=== PATIENT | female | born 1950 | race Caucasian/White ===

== ENCOUNTER 2023-05-04 09:01 | Emergency (ER) | payer OTHER, SELFPAY ==
[2023-05-04 09:18] VITALS: BP 149/98
--- NOTE | 2023-05-04 09:55 | ED.GENMED ---
History of Present Illness
General
Chief Complaint: Abdominal Symptoms
Source: patient
Time Seen by Provider: 05/04/23 09:43
Travel History
Have you had any contact with someone who has COVID-19?: No
Do you have any symptoms of coronavirus? Fever > 100 degrees, chills, cough, shortness of breath, sore throat, loss of taste or smell, muscle aches, or headache?: No
History of Present Illness
History of Present Illness:
72-year-old female presents to the emergency room complaining of having diarrhea and significant bloating and gas over the past 3 to 4 months. She has about 2 loose stools a day. She is able to tolerate oral intake. She has not had any weight
loss and in fact believes she has gained a bit of weight over the past 3 or 4 months. She denies abdominal pain. Patient last took antibiotics in October after spine surgery. She denies any travel. She denies any sick contacts. Her home is
applied by [employer].
Past History
Past History
ED Past Medical History: GERD (Barrretts), Hypothyroidism and Other (Silva's esophagus)
ED Past Surgical History: Cholecystectomy (11/02) and Orthopedic
Social History
Tobacco: Non-smoker
Alcohol: None
Drug: None
Personal: Single
Living: alone
Phy Exam
Physical Exam
Physical Exam:
General: Awake, Alert, Oriented X3. No acute distress.
Vitals: unremarkable
Head: Atraumatic
Eyes: Pupils equal, EOMI
Throat: Airway intact, no exudates
Neck: Trachea midline
Lungs: Clear and equal b/l
Heart: Regular rate, no murmurs
Abd: Soft, Nontender, No pulsatile mass
Neuro: Nonfocal
Skin: Warm, dry, no rash
Extremities: pulses equal b/l, no edema
Course
Orders/Labs/Results
Orders:
Orders
05/04/23 09:52
0.9% Sodium Chloride 500 ml [Nss] 500 ml IV BOLUS
05/04/23 10:06
Complete Blood Count/With Diff Urgent
05/04/23 10:31
Comprehensive Metabolic Panel Urgent
Abnormal Lab Results
05/04/23
10:31
Chloride 110 H mmol/L
(98-107)
Glucose 115 H mg/dl
(70-99)
Total Protein 5.6 L g/dl
(6.3-8.2)
Albumin 3.4 L g/dl
(3.5-5.0)
05/04/23 10:06
05/04/23 10:31
Vital Signs
Initial and Last Documented VS:
Initial Vital Signs
Temp Pulse Resp BP Pulse Ox
98.1 F 102 16 149/98 95
05/04/23 09:18 05/04/23 09:18 05/04/23 09:18 05/04/23 09:18 05/04/23 09:18
Last Documented Vital Signs
Temp Pulse Resp BP Pulse Ox
98.1 F 85 16 136/86 98
05/04/23 09:18 05/04/23 10:19 05/04/23 10:19 05/04/23 12:03 05/04/23 11:35
MDM/Problems Addressed
Differential Diagnosis Includes:
Malabsorption, viral illness, medication side effect, dietary effect
MDM/Problems Addressed:
Patient states that she has been having 2 loose stools every day for the past several weeks. She had spinal surgery preceding the diarrhea. She did develop diarrhea at that time and did develop a couple weeks later. She was on antibiotics for her
surgery but none since. Doubt C. difficile given the infrequency of her stool. Also she did not develop diarrhea immediately following the use of the antibiotics. However patient does recall a significant change in her dietary habits since the
surgery. She is relying more on prepared foods and fast foods. Suggest the patient change her diet to less prepared foods and fast foods. Recommended brat diet for the next 2 or 3 days to see if that helps. Follow-up with GI as an outpatient.
*Critical Care Note
Total Time (30-74mins, 75-104mins- exclusive of procedures): Not Applicable
ED Attending Note
-
Portions of this chart may have been created with voice recognition software.� Occasional wrong word or��sound alike� substitutions may have occurred due to the inherent limitations of voice recognition software.
Discharge Plan
Departure
Patient Disposition: Home (Routine Discharge)
Date of Disposition: 05/04/23
Time of Disposition: 12:28
Patient with high blood pressure during this ER visit?: Yes
Condition: Good
Discharge Problem:
Diarrhea
Instructions: Low Fiber Diet, Diarrhea, Adult ED
Prescriptions:
No Action
levothyroxine [Levoxyl] 75 MCG tablet
75 mcg PO DAILY
rosuvastatin 5 mg Tablet
5 mg PO DAILY
aripiprazole 2 mg Tablet
2 mg PO DAILY
Rx Instructions:
Cuts tab in 03/17.
vilazodone 10 mg Tablet
10 mg PO DAILY
Rx Instructions:
takes with food.
omeprazole magnesium [Prilosec OTC] 20 mg Tablet,Delayed Release (Dr/Ec)
20 mg PO DAILY
acetaminophen 325 mg tablet
650 mg PO Q4H PRN (Reason: mild pain) Qty: 60 0RF
Rx Instructions:
DO NOT exceed >4000 mg daily while on Tylenol with Codeine.
1 Tylenol with Codeine = 300 mg of Tylenol.
meloxicam 15 mg Tablet
15 mg PO DAILY
alprazolam 0.5 mg Tablet
0.5 mg PO PRN PRN (Reason: .as directed)
Referrals:
Crescencio Epstein MD [Family Provider] -
Interventions
Interventions:
*Risk Screen - Suicide Last Done: 05/04/23 09:18
*General Assessment Last Done: 05/04/23 09:18
*Neglect/Abuse Screening Last Done: 05/04/23 09:18
ED- Fall Risk Assessment Last Done: 05/04/23 10:07
*ED COVID-19 Vaccine History Last Done: 05/04/23 09:40
*Nursing Disposition Last Done: 05/04/23 12:44
MM-Ulsubk-Dxlgibwqjc Assessment Last Done: 05/04/23 10:16
Discharge Date and Time
Discharge Date/Time: 05/04/23 12:53
[2023-05-04] MEDS: NSS 500 IV (10:05)
[2023-05-04 10:07] VITALS: BMI 30.7
[2023-05-04 10:19] VITALS: BP 135/81
[2023-05-04 10:20] LABS: % Eosinophils 2.5 % (0-6); % Immature Granulocytes 0.2 % (0-0.5); % Lymphocytes 32.8 % (20.5-51.1); % Monocytes 9.2 % (1.7-9.3); % Neutrophils 54.3 % (42.2-75.2); Absolute Basophils 0.1 10^3/uL (0-0.2); Absolute Eosinophils 0.2 10^3/uL (0-0.7); Absolute Lymphocytes 2.1 10^3/uL (1.2-3.4); Absolute Monocytes 0.6 10^3/uL (0.1-0.6); Absolute Neutrophils 3.4 10^3/uL (1.4-6.5); Hematocrit 43.3 % (37.0-47.0); Mean Corp Hgb Conc. 34.6 g/dL (33.0-37.0); Mean Corpuscular Volume 89.5 fL (81.0-99.0); Mean Platelet Volume 9.4 fL (7.4-10.4); Nucleated Red Blood Cells % 0 %; Platelet Count 304 10^3/uL (130-400); Red Blood Cell Count 4.84 10^6/uL (4.20-5.40); Red Cell Dist. Width 13.1 % (11.5-14.5); White Blood Cell Count 6.3 10^3/uL (4.8-10.8)
[2023-05-04 10:51] LABS: ALT (SGPT) 23 U/L (0-35); AST (SGOT) 23 U/L (14-36); Albumin 3.4 g/dl (3.5-5.0); Alkaline Phosphatase 87 U/L (38-126); Blood Urea Nitrogen 13 mg/dl (7-17); Calcium 8.8 mg/dl (8.4-10.2); Carbon Dioxide 24 mmol/L (22-30); Chloride 110 mmol/L (98-107); Estimated Creatinine Clearance 83 ml/min; Glucose 115 mg/dl (70-99); Potassium 3.7 mmol/L (3.5-5.1); Sodium 139 mmol/L (135-145); Total Bilirubin 0.5 mg/dl (0.2-1.3); Total Protein 5.6 g/dl (6.3-8.2); eGFR > 60.00
[2023-05-04 11:08] VITALS: BP 162/100
[2023-05-04 12:03] VITALS: BP 136/86
== END 2023-05-04 12:53 | disposition home or self-care (01) ==
LOC: EMR 09:01
PROVIDERS: EMERGENCY PHYSICIAN Emergency Medicine; FAMILY PHYSICIAN Family Medicine
DX: R19.7 Diarrhea, unspecified (principal); R14.0 Abdominal distension (gaseous); R03.0 Elevated blood-pressure reading, without diagnosis of hypertension
CPT/HCPCS: 99284; 96360; 80053; 85025

== ENCOUNTER → 2023-05-27 14:50 | Outpatient (REF) | payer OTHER, SELFPAY | LOC: WDC 14:50 | PROVIDERS: ATTENDING PHYSICIAN Family Medicine | DX: Z12.31 Encounter for screening mammogram for malignant neoplasm of breast (principal); M85.80 Other specified disorders of bone density and structure, unspecified site | CPT/HCPCS: 77063; 77067; 77080 ==

== ENCOUNTER 2023-07-10 14:11 | Outpatient (RCR) | payer OTHER, SELFPAY ==
[2023-07-10 14:34] VITALS: BP 122/78
[2023-07-10] MEDS: RECLAST 100 IV (14:36)
== END 2023-07-13 08:12 | disposition home or self-care (01) ==
LOC: OID 14:11
PROVIDERS: ATTENDING PHYSICIAN Family Medicine
DX: M81.0 Age-related osteoporosis without current pathological fracture (principal)
CPT/HCPCS: 96365; J3489

== ENCOUNTER 2023-07-11 15:16 | Emergency (ER) | payer OTHER, SELFPAY ==
[2023-07-11 15:20] VITALS: BP 120/84
[2023-07-11 15:46] LABS: % Basophils 0.2 % (0-2); % Immature Granulocytes 0.5 % (0-0.5); % Lymphocytes 3.5 % (20.5-51.1); % Neutrophils 93.8 % (42.2-75.2); Absolute Immature Granulocytes 0.1 10^3/uL (0-0.05); Absolute Lymphocytes 0.5 10^3/uL (1.2-3.4); Absolute Monocytes 0.3 10^3/uL (0.1-0.6); Absolute Neutrophils 11.9 10^3/uL (1.4-6.5); Hemoglobin 15.7 g/dL (12.0-16.0); Mean Corp Hgb Conc. 34.9 g/dL (33.0-37.0); Mean Corpuscular Hgb 30.6 pg (27.0-31.0); Mean Corpuscular Volume 87.7 fL (81.0-99.0); Mean Platelet Volume 9.1 fL (7.4-10.4); Nucleated Red Blood Cells % 0 %; Platelet Count 286 10^3/uL (130-400); Red Blood Cell Count 5.13 10^6/uL (4.20-5.40); White Blood Cell Count 12.7 10^3/uL (4.8-10.8)
[2023-07-11 15:58] LABS: ALT (SGPT) 28 U/L (0-35); AST (SGOT) 25 U/L (14-36); Albumin 4.4 g/dl (3.5-5.0); Alkaline Phosphatase 115 U/L (38-126); Blood Urea Nitrogen 17 mg/dl (7-17); Calcium 9.4 mg/dl (8.4-10.2); Carbon Dioxide 22 mmol/L (22-30); Chloride 103 mmol/L (98-107); Glucose 150 mg/dl (70-99); Potassium 3.9 mmol/L (3.5-5.1); Sodium 133 mmol/L (135-145); Total Bilirubin 1.2 mg/dl (0.2-1.3); eGFR > 60.00
[2023-07-11 18:28] VITALS: BP 149/82; BMI 29.2
[2023-07-11 18:30] VITALS: BP 149/82
[2023-07-11] MEDS: ZOFRAN 4 MG IV (18:38)
[2023-07-11] MEDS: NSS 500 IV (18:39)
[2023-07-11] MEDS: TORADOL 15 MG IV (18:39)
[2023-07-11 19:00] VITALS: BP 164/104
[2023-07-11 19:32] LABS: Urine Albumin Negative (Neg - Trace); Urine Bilirubin Negative (Negative); Urine Character Slightly Cloudy (Clear); Urine Color Yellow; Urine Glucose Negative (Negative); Urine Ketone Negative (Negative); Urine Leukocyte 1+ (Negative); Urine Nitrite Negative (Negative); Urine Occult Blood Negative (Negative); Urine Urobilinogen Negative (Neg - 1+)
[2023-07-11 19:51] LABS: Urine Squamous Cell >30 /LPF (Few)
[2023-07-11 19:52] LABS: Urine Bacteria Few (Negative); Urine Red Blood Cell 0-2 /HPF (0-2); Urine White Cell 16-20 /HPF (0-5)
--- NOTE | 2023-07-11 20:00 | ED.GENMED ---
History of Present Illness
General
Chief Complaint: Abdominal Symptoms
Source: patient
Exam Limitations: none
Time Seen by Provider: 07/11/23 17:40
Nursing documentation reviewed up to this point in time: agreed with
Travel History
Have you had any contact with someone who has COVID-19?: No
Do you have any symptoms of coronavirus? Fever > 100 degrees, chills, cough, shortness of breath, sore throat, loss of taste or smell, muscle aches, or headache?: No
History of Present Illness
History of Present Illness:
72-year-old female with past medical history of hyperlipidemia presenting to the emergency department today with concerns of nausea vomiting generalized weakness headache over the past few days since taking her IV osteoporosis medication yesterday.
Denies chest pain shortness of breath
Past History
Past History
ED Past Medical History: GERD (Barrretts), Hypothyroidism and Other (Silva's esophagus)
ED Past Surgical History: Cholecystectomy (11/02) and Orthopedic
Social History
Tobacco: Non-smoker
Alcohol: None
Drug: None
Personal: Single
Living: alone
Review of Systems
Review of Systems
Allergies reviewed?: Yes
All Other Systems: ROS reviewed and negative except as documented in HPI and ROS
Phy Exam
Physical Exam
Physical Exam:
GENERAL: Alert , in no apparent distress
EYE: pupils equal and reactive
NECK: Supple, no significant adenopathy.
ENT: o/p clr, mmm.
CARDIAC: Regular rate and rhythm .
LUNGS: Clear breath sounds bilaterally, no acute respiratory distress, no wheezes/rales/rhonchi
ABDOMEN: Soft, without focal tenderness, no r/g, no cvat
NEUROLOGICAL: Alert and oriented, no focal neuro deficits
SKIN: Warm and dry, skin intact.
MUSCULOSKELETAL: No edema, well perfused.
PSYCH: Normal and appropriate interaction.
Course
Orders/Labs/Results
Orders:
Orders
07/11/23 15:35
CBC/With Diff [Complete Blood Count/With Diff] Urgent
CMP [Comprehensive Metabolic Panel] Urgent
TSH Urgent
Comment: ADD ON
07/11/23 17:49
EKG [Electrocardiogram (*1)] Urgent
Reason for Study: Abdominal Pain
EKG- Treatment ONCE
Ketorolac [Toradol] 15 mg IV NOW STA
Ondansetron Injectable [Zofran] 4 mg IV NOW STA
07/11/23 17:50
Add On- LAB Urgent
Tests Added?: TSH
0.9% Sodium Chloride 500 ml [Nss] 500 ml IV BOLUS
07/11/23 19:26
Urinalysis Reflex To Culture Urgent
Date Specimen was Collected: 07/11/23
Time Specimen was Collected: 19:25
Urine Microscopic Reflex Cult Urgent
Urine Culture Urgent
SIERRA Source: U
Specimen Description:
Date Specimen was Collected: 07/11/23
Time Specimen was Collected: 19:25
Abnormal Lab Results
07/11/23 07/11/23
15:35 19:26
WBC 12.7 H 10^3/uL
(4.8-10.8)
Abs Immat Gran (auto) 0.1 H 10^3/uL
(0-0.05)
Absolute Neuts (auto) 11.9 H 10^3/uL
(1.4-6.5)
Absolute Lymphs (auto) 0.5 L 10^3/uL
(1.2-3.4)
Neutrophils % 93.8 H %
(42.2-75.2)
Lymphocytes % 3.5 L %
(20.5-51.1)
Sodium 133 L mmol/L
(135-145)
Glucose 150 H mg/dl
(70-99)
Leukocyte Esterase Rfl 1+ A
(Negative)
Urine WBC (Reflex) 16-20 A /HPF
(0-5)
Urine Bacteria (Reflex) Few A
(Negative)
07/11/23 15:35
07/11/23 15:35
Vital Signs
Initial and Last Documented VS:
Initial Vital Signs
Temp Pulse Resp BP Pulse Ox
99.1 F 104 16 120/84 98
07/11/23 15:20 07/11/23 15:20 07/11/23 15:20 07/11/23 15:20 07/11/23 15:20
Last Documented Vital Signs
Temp Pulse Resp BP Pulse Ox
98.5 F 84 18 149/82 97
07/11/23 18:28 07/11/23 18:45 07/11/23 18:45 07/11/23 18:30 07/11/23 18:45
MDM/Problems Addressed
MDM/Problems Addressed:
9-year-old female presenting to the emergency department with concerns of nausea vomiting generalized weakness fatigue headache over the past 24 hours since taking IV medication for osteoporosis. These are some of the known side effects. Otherwise
her pulse rate was slightly elevated upon arrival but improved without specific treatment. White count 12.7 otherwise labs unremarkable urinalysis not consistent with UTI consider negative squamous epithelial cells. EKG normal. Patient generally
well-appearing no acute distress throughout ER stay able to ambulate well here. Patient appear stable for outpatient management return precautions given.
*Critical Care Note
Total Time (30-74mins, 75-104mins- exclusive of procedures): Not Applicable
ED Attending Note
-
Portions of this chart may have been created with voice recognition software.� Occasional wrong word or��sound alike� substitutions may have occurred due to the inherent limitations of voice recognition software.
Discharge Plan
Departure
Patient Disposition: Home (Routine Discharge)
Date of Disposition: 07/11/23
Time of Disposition: 20:01
Patient with high blood pressure during this ER visit?: No
Condition: Good
Covid-19: Not Applicable
Discharge Problem:
Generalized weakness, Nausea
Instructions: Generalized Weakness (DC)
Prescriptions:
No Action
levothyroxine [Levoxyl] 75 MCG tablet
75 mcg PO DAILY
rosuvastatin 5 mg Tablet
5 mg PO DAILY
aripiprazole 2 mg Tablet
2 mg PO DAILY
Rx Instructions:
Cuts tab in 03/17.
vilazodone 10 mg Tablet
10 mg PO DAILY
Rx Instructions:
takes with food.
omeprazole magnesium [Prilosec OTC] 20 mg Tablet,Delayed Release (Dr/Ec)
20 mg PO DAILY
acetaminophen 325 mg tablet
650 mg PO Q4H PRN (Reason: mild pain) Qty: 60 0RF
Rx Instructions:
DO NOT exceed >4000 mg daily while on Tylenol with Codeine.
1 Tylenol with Codeine = 300 mg of Tylenol.
meloxicam 15 mg Tablet
15 mg PO DAILY
alprazolam 0.5 mg Tablet
0.5 mg PO PRN PRN (Reason: .as directed)
Referrals:
Sravani Sherman DO [Family Provider] -
Activity Restrictions/Additional Instructions:
You can to the emergency department today with potential side effects to medication. Here you had a reassuring evaluation. Return for any worsening, new or concerning symptoms.
Interventions
Interventions:
*Risk Screen - Suicide Last Done: 07/11/23 15:20
*General Assessment Last Done: 07/11/23 15:20
*Neglect/Abuse Screening Last Done: 07/11/23 15:20
ED- Fall Risk Assessment Last Done: 07/11/23 18:28
*ED COVID-19 Vaccine History Last Done: 07/11/23 18:28
LT-Ndeole-Unxrahritm Assessment Last Done: 07/11/23 18:28
Discharge Date and Time
Print Language: YAKUT
[2023-07-11 20:03] LABS: TSH 1.84 uIU/ml (0.47-4.68)
== END 2023-07-11 20:22 | disposition home or self-care (01) ==
LOC: EMR 15:16
PROVIDERS: Physician Assistant; EMERGENCY PHYSICIAN Emergency Medicine; FAMILY PHYSICIAN Otolaryngology
DX: R53.1 Weakness (principal); R11.0 Nausea; E78.5 Hyperlipidemia, unspecified
CPT/HCPCS: 99284; 96374; 96375; 96361; 80053; 81003; 81015; 84443; 85025; 87086; 93005

== ENCOUNTER → 2023-08-21 13:39 | Outpatient (REF) | payer OTHER, SELFPAY | LOC: RAD 13:39 | PROVIDERS: ATTENDING PHYSICIAN Nurse Practitioner Family | DX: J22 Unspecified acute lower respiratory infection (principal) | CPT/HCPCS: 71046 ==

== ENCOUNTER → 2024-03-07 14:04 | Outpatient (REF) | payer OTHER, SELFPAY | LOC: PAVMRI 14:04 | PROVIDERS: ATTENDING PHYSICIAN Physician Assistant; FAMILY PHYSICIAN Family Medicine | DX: R26.9 Unspecified abnormalities of gait and mobility (principal); R25.1 Tremor, unspecified; R42 Dizziness and giddiness | CPT/HCPCS: 70553; A9575 ==

== ENCOUNTER → 2024-03-22 07:34 | Outpatient (REF) | payer OTHER, SELFPAY | LOC: RAD 07:34 | PROVIDERS: ATTENDING PHYSICIAN Internal Medicine Gastroenterology; FAMILY PHYSICIAN Family Medicine | DX: K44.9 Diaphragmatic hernia without obstruction or gangrene (principal); K21.9 Gastro-esophageal reflux disease without esophagitis | CPT/HCPCS: 78264; A9541 ==

== ENCOUNTER → 2024-05-08 09:24 | Outpatient (REF) | payer OTHER, SELFPAY | LOC: PAVMRI 09:24 | PROVIDERS: ATTENDING PHYSICIAN Anesthesiology Pain Medicine; FAMILY PHYSICIAN Family Medicine | DX: M96.1 Postlaminectomy syndrome, not elsewhere classified (principal); M54.14 Radiculopathy, thoracic region | CPT/HCPCS: 72146; 72148 ==

== ENCOUNTER 2024-09-14 00:35 | Inpatient (IN) | payer OTHER, SELFPAY ==
[2024-09-13 20:52] VITALS: BP 135/101
[2024-09-13 20:53] VITALS: BMI 29.1
[2024-09-13 21:00] VITALS: BP 138/120
[2024-09-13 21:07] LABS: Hematocrit 41.9 % (37.0-47.0); Hemoglobin 14.3 g/dL (12.0-16.0); Mean Corp Hgb Conc. 34.1 g/dL (33.0-37.0); Mean Corpuscular Volume 89.0 fL (81.0-99.0); Nucleated Red Blood Cells % 0 %; Platelet Count 238 10^3/uL (130-400); Red Cell Dist. Width 13.2 % (11.5-14.5)
[2024-09-13 21:23] LABS: ALT (SGPT) 28 U/L (0-35); AST (SGOT) 22 U/L (14-36); Albumin 4.0 g/dl (3.5-5.0); Alkaline Phosphatase 68 U/L (38-126); Blood Urea Nitrogen 10 mg/dl (7-17); Calcium 9.0 mg/dl (8.4-10.2); Carbon Dioxide 22 mmol/L (22-30); Chloride 107 mmol/L (98-107); Estimated Creatinine Clearance 70 ml/min; Glucose 176 mg/dl (70-99); Potassium 4.2 mmol/L (3.5-5.1); Sodium 135 mmol/L (135-145); Total Protein 6.7 g/dl (6.3-8.2); eGFR > 60.00
[2024-09-13 22:34] LABS: INR 0.99; PT 13.4 Sec (11.4-14.6)
[2024-09-13 22:35] LABS: APTT 26.6 Sec (23.4-35.0)
--- NOTE | 2024-09-13 22:38 | ED.GENMED ---
History of Present Illness
General
Chief Complaint: Fever
Source: patient and other (Friend)
Exam Limitations: none
Time Seen by Provider: 09/13/24 21:53
History of Present Illness
History of Present Illness:
Note:
CHIEF COMPLAINT(S)
Infection, swelling near the left angle of the mandible, and generalized weakness.
HISTORY OF PRESENT ILLNESS
The patient is a 73-year-old female who presents with infection and swelling near the left angle of her mandible. She initially experienced a sinus infection in July after a back surgery on August 09, where a stimulator was implanted to manage
sciatica-like symptoms. 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 Recently, she was started on Augmentin and had taken only one dose before feeling extremely weak,
prompting a call to a nurse friend who found her leaning against the sink at home. The patient also reported a fever, recorded at 100.2�F earlier in the day, and described weakness, difficulty unhinging her jaw due to swelling, and a history of a
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 The patient denies chest pain, shortness of breath, new muscle aches, leg swelling, dental pain, and currently denies nausea.
CHRONIC MEDICAL CONDITIONS SIGNIFICANTLY AFFECTING CARE
The patient has a history of essential tremor, anxiety, depression, hyperlipidemia, hyperthyroidism (not using any prescribed thyroid medication), and foot drop.
SOCIAL DETERMINANTS AFFECTING HEALTH
The patient lives alone in a private home.
MEDICATIONS
The patient is on atorvastatin as previously mentioned but details regarding dosage and specific use were not provided. The patient was recently prescribed Augmentin.
PHYSICAL EXAM
- Swelling noted near the left angle of the mandible.
- No chest pain or shortness of breath reported.
- No edema observed.
- Nursing notes reviewed and vital signs reviewed.
PROBLEM LIST
Acute:
- Infection in the parotid region with swelling and fever.
- Generalized weakness possibly related to the infection.
Chronic:
- Essential tremor
- Anxiety
- Depression
- Hyperlipidemia
- Ongoing issues with foot drop
PLAN
1. Admit the patient for further evaluation and observation due to weakness.
2. Perform additional laboratory tests and imaging, including a computed tomography scan of the face and neck to assess the parotid region.
3. Administer fluids to the patient.
4. Monitor the patients symptoms and provide medications for pain and nausea if needed.
DIFFERENTIAL DIAGNOSIS
The Differential Diagnosis includes, in no particular order and is not limited to:
1. Parotitis
2. Salivary gland tumor recurrence
3. Infection secondary to dental issues
4. Submandibular abscess
5. Sialolithiasis
6. Cellulitis
7. Lymphadenopathy
8. Sinusitis relapse
9. Facial cellulitis
10. Complication from recent back surgery or medication side effects
CARE-UPDATE
09/13/24 - 23:40
CT scan reveals left parotitis with asymmetric enlargement and inflammation of the left parotid gland. Probable left intraparotid lymph nodes indicated; follow-up imaging recommended post-treatment for reevaluation. Noted bilateral cervical
lymphadenopathy.
Disposition:
SUMMARY OF ENCOUNTER
The patient, a 73-year-old female, presented with acute parotitis that failed outpatient therapy on two occasions. Initially, the patient was treated with Augmentin, which was stopped after one dose due to extreme weakness. Despite this, her
symptoms persisted, necessitating a more intensive approach.
DISPOSITION
The patient will be admitted to the hospital service for further management.
PLAN
The initiation of Unasyn (ampicillin/sulbactam) and Flagyl (metronidazole) for the acute parotitis was planned.
MEDICATION RECONCILIATION
Patient was started on Unasyn (ampicillin/sulbactam) and Flagyl (metronidazole).
MEDICAL DECISION MAKING
-Complexity of Data Reviewed: Chronic conditions affecting care: Essential tremor, anxiety, depression, hyperlipidemia, hyperthyroidism, foot drop.
DDx includes: Parotitis, Salivary gland tumor recurrence, Infection secondary to dental issues, Submandibular abscess, Sialolithiasis, Cellulitis, Lymphadenopathy, Sinusitis relapse, Facial cellulitis, Complication from recent back surgery or
medication side effects.
-Risk: The risk of complications and/or morbidity due to acute infection prompted the decision to admit the patient for inpatient care and to initiate antibiotic therapy beyond outpatient management options.
DIAGNOSIS
Acute Parotitis - ICD-10: K11.2
Past History
Past History
ED Past Medical History: GERD (Barrretts), Hypothyroidism and Other (Silva's esophagus)
ED Past Surgical History: Cholecystectomy (11/02) and Orthopedic
Social History
Tobacco: Non-smoker
Alcohol: None
Drug: None
Personal: Single
Living: alone
Review of Systems
Review of Systems
Allergies reviewed?: Yes
Other source history: family
All Other Systems: ROS reviewed and negative except as documented in HPI and ROS
Constitutional: Reports fever and fatigue
Phy Exam
General Physical Exam
General Presentation: well appearing, moderate distress and mild distress
General age: appears stated age
General Skin: warm and dry
General Habitus: elderly
General Mental: alert
ENT Exam
ENT Exam: EOMI, pharynx normal, neck supple, lymphnodes and swallowing well
Eye Exam
Eye Exam: PERRL and EOMI
Cardiovascular Exam
Cardiovascular Exam: regular rate/rhythm and no edema
Pulmonary Exam
Pulmonary Exam: lungs clear and no respiratory distress
Neurological Exam
Neurological Exam: alert and oriented x3
Skin Exam
Skin Exam: normal color and warm/dry
Psychiatric Exam
Psychiatric Exam: normal mood/affect
Course
Orders/Labs/Results
Orders:
Orders
09/13/24 20:53
Electrocardiogram (*1) Urgent
Reason for Study: Fatigue / Weakness
EKG- Treatment ONCE
09/13/24 20:58
Complete Blood Count/With Diff Urgent
Comprehensive Metabolic Panel Urgent
Lactic Acid Urgent
09/13/24 22:08
CT Neck With Iv Contrast Urgent
Comment:
Reason For Exam: left sided mass, fever, elev wbc
0.9% Sodium Chloride 1000 ml [Nss] 2,500 ml IV NOW STA
Acetaminophen [Tylenol] 650 mg PO NOW STA
09/13/24 22:09
Electrocardiogram (*1) Urgent
Reason for Study: Other
Other Reason for Exam: sepsis
EKG- Treatment ONCE
09/13/24 22:12
PTT Urgent
Prothrombin Time Urgent
Troponin I Urgent
Blood Culture Q30M
SIERRA Source: Blood/Venous
Specimen Description:
Blood Culture Q30M
SIERRA Source: Blood/Venous
Specimen Description:
09/13/24 23:11
Urinalysis Reflex To Culture Urgent
Date Specimen was Collected: 09/13/24
Time Specimen was Collected: 23:10
09/14/24 02:15
Lactic Acid Q4H
Comment: CANCEL 2nd LACTIC ACID IF 1st LACTIC ACID IS LESS THAN 2
Abnormal Lab Results
09/13/24
20:58
WBC 17.7 H 10^3/uL
(4.8-10.8)
Abs Immat Gran (auto) 0.1 H 10^3/uL
(0-0.05)
Absolute Neuts (auto) 14.9 H 10^3/uL
(1.4-6.5)
Absolute Lymphs (auto) 0.8 L 10^3/uL
(1.2-3.4)
Absolute Monos (auto) 1.6 H 10^3/uL
(0.1-0.6)
Neutrophils % 84.0 H %
(42.2-75.2)
Lymphocytes % 4.3 L %
(20.5-51.1)
Glucose 176 H mg/dl
(70-99)
09/13/24 20:58
09/13/24 20:58
Vital Signs
Initial and Last Documented VS:
Initial Vital Signs
Temp
100 F
09/13/24 20:47
Last Documented Vital Signs
Temp Pulse Resp BP Pulse Ox
100 F 108 22 138/120 97
09/13/24 20:47 09/13/24 21:15 09/13/24 21:15 09/13/24 21:00 09/13/24 22:39
*Pulse Oximetry
SaO2: 97
Patient hypoxic: no
*Critical Care Note
Total Time (30-74mins, 75-104mins- exclusive of procedures): Not Applicable
ED Attending Note
-
Portions of this chart may have been created with voice recognition software.� Occasional wrong word or��sound alike� substitutions may have occurred due to the inherent limitations of voice recognition software.
Discharge Plan
Departure
Patient Disposition: Admit
Date of Disposition: 09/13/24
Time of Disposition: 23:48
Admit to: Telemetry
Presentation/result/management discussed w/ accepting MD/DO: Hospitalist
Discharge Problem:
Weakness, Acute parotitis
Prescriptions:
No Action
levothyroxine [Levoxyl] 75 MCG tablet
75 mcg PO DAILY
rosuvastatin 5 mg Tablet
5 mg PO DAILY
aripiprazole 2 mg Tablet
2 mg PO DAILY
vilazodone 10 mg Tablet
10 mg PO DAILY
acetaminophen [Tylenol Extra Strength] 500 mg Tablet
1,000 mg PO DAILY
omeprazole 20 mg Capsule,Delayed Release(Dr/Ec)
20 mg PO BID
amoxicillin-pot clavulanate 875-125 mg Tablet
1 tab PO BID
Patient Comments:
09/13/2024, filled on 09/13/2024 and instructed to take 1 tab BID for 7 days.
ciclopirox 1 % Shampoo
1 ea TOPICAL .3 TIMES A WEEK
Patient Comments:
09/13/2024, apply to scalp.
cholestyramine (with sugar) 4 gram Powder In Packet
4 g PO HS
Visbiome 112.5 billion cell Capsule
1 cap PO DAILY@1500
Referrals:
Crescencio Epstein MD [Family Provider, Family Practice]
Interventions
Interventions:
*Risk Screen - Suicide Last Done: 09/13/24 20:47
*General Assessment Last Done: 09/13/24 20:47
*Neglect/Abuse Screening Last Done: 09/13/24 20:47
ED- Neurological Assessment Last Done: 09/13/24 20:55
ED-Skin Assessment Last Done: 09/13/24 20:56
Discharge Date and Time
Print Language: HUNGARIAN
[2024-09-13] MEDS: NSS 2500 ML IV (22:39)
[2024-09-13] MEDS: TYLENOL 650 MG PO (22:39)
[2024-09-13 22:48] LABS: Troponin I < 0.012 ng/ml
[2024-09-13 23:19] LABS: Urine Character Clear (Clear)
[2024-09-14] MEDS: FLAGYL 500 MG 100 IV ×4 (00:11→23:56)
--- NOTE | 2024-09-14 00:15 | HPS.HSE ---
Family Physician
-
Family Physician: Crescencio Epstein
Chief Complaint
-
Fever, Facial swelling
History of Present Illness
Patient is a 73y F with PMH significant for parotid cancer (remote), chronic back pain and GERD who presents to ED complaining of fevers and L facial pain and swelling. Patient states that she underwent spine stimulator placement in July 2024.
Following that procedure she developed headache / sinus pressure - including some discomfort in the L ear / cheek area. She was treated with antibiotics at that time and unfortunately developed CDiff diarrhea. She was treated with oral vancomycin
which she states she completed about one week ago. She has not had continued diarrhea.
Last PM, patient developed new L facial swelling and pain. Some sore throat. 'Fever' at home to 100.2.
Patient was seen by her PCP earlier today and prescribed Augmentin. She has taken one dose thus far. Patient states that she 'felt terrible' this evening and was very weak and nauseated. No emesis.
She presented to the ED for further evaluation.
Medical History
Past Medical History
Past Medical History: Reports Other
Additional Past Medical History:
Benign Essential Tremor
GERD / Silva's Esophagus
Depression
Lumbar DDD
Chronic Back Pain
Hypothyroidism
Right Parotid Tumor ()
Benign Spinal Tumor
Past Surgical History: Reports Other
Additional Past Surgical History:
Spine Stimulator (May 2024)
Lumbar Laminectomy / Fusion
Right parotid Tumor Excision
Spinal Tumor Excision
Cholecystectomy
Cataracts
Social History
Tobacco: Non-smoker
Alcohol: None
Drug: None
Family History
Family History: Not pertinent
Allergies / Home Medications
Allergies reflects when Allergies were last updated in [employer].
Home Medications with original date entered in [employer]
Allergy/Medication List:
Allergies
Allergy/AdvReac Type Severity Reaction Status Date / Time
oxycodone (From Percocet) Allergy hallucinati Verified 07/11/23 15:19
ons
Sulfa (Sulfonamide Allergy 'Spacey' Verified 07/11/23 15:19
Antibiotics) feeling
zoledronic acid AdvReac FLU LIKE Verified 07/13/23 10:09
SYMPTOMS
Home Medications
levothyroxine 75 mcg tablet (Levoxyl) 75 mcg PO DAILY Thyroid 10/26/19
aripiprazole 2 mg tablet 2 mg PO DAILY Mental Health/Anxiety 04/11/22
rosuvastatin 5 mg tablet 5 mg PO DAILY High Cholesterol 04/11/22
vilazodone 10 mg tablet 10 mg PO DAILY Mental Health/Anxiety 10/27/22
Lactobac no.2-Bifidobac no.1-S. thermo 112.5 billion cell capsule (Visbiome) 1 cap PO DAILY@1500 09/13/24
acetaminophen 500 mg tablet (Tylenol Extra Strength) 1,000 mg PO DAILY 09/13/24
amoxicillin 875 mg-potassium clavulanate 125 mg tablet 1 tab PO BID 09/13/24
cholestyramine (with sugar) 4 gram powder for susp in a packet 4 g PO HS 09/13/24
ciclopirox 1 % shampoo 1 ea topical .3 TIMES A WEEK 09/13/24
omeprazole 20 mg capsule,delayed release 20 mg PO BID 09/13/24
Review of Systems
-
History Source: Patient
A 12 point ROS was completed and negative except as noted: Yes
Constitutional: Reports Fever, Fatigue and Chills
EENT: Reports Sore Throat, Mouth Pain and Other (No purulent discharge / oral drainage.)
Respiratory: Denies Cough or Trouble Breathing
Cardiac: Denies Chest Pain or Palpitations
Abdomen/GI: Reports Nausea; Denies Abdominal Pain, Vomiting or Diarrhea
: Denies Dysuria or Frequency
Musculoskeletal: Denies Joint Pain or Edema
Neurological: Denies Dizzy or Headache
Psych: Denies Depression or Anxiety
Physical Exam
Vital Signs
Vital Signs
Temp Pulse Resp BP Pulse Ox
100 F 108 22 138/120 97
09/13/24 20:47 09/13/24 21:15 09/13/24 21:15 09/13/24 21:00 09/13/24 22:39
Physical Exam
General: Other (73y F in no acute distress.)
HEENT: Other (Pos induration / edema L preauricular region with mild erythema and tenderness. Not fluctuant / 'boggy'. No intra-oral lesions or drainage appreciated. Neck with bilateral, non-tender adenopathy.)
Respiratory: Clear; No Wheezes, Rales or Rhonchi
Cardiac: S1/S2, Regular Rhythm and Murmur (II/ LYLY)
GI: Soft, Non Tender, Non Distended and Normal Bowel Sounds
Musculoskeletal: No Clubbing, No Cyanosis and No Edema
Neuro: AO x 3
Laboratory Results
-
09/13/24 20:58
09/13/24 20:58
Laboratory Results
PT 13.4 Sec (11.4-14.6) 09/13/24 22:12
INR 0.99 09/13/24 22:12
APTT 26.6 Sec (23.4-35.0) 09/13/24 22:12
Lactic Acid Cancelled 09/13/24 22:15
Total Bilirubin 1.2 mg/dl (0.2-1.3) 09/13/24 20:58
AST 22 U/L (14-36) 09/13/24 20:58
ALT 28 U/L (0-35) 09/13/24 20:58
Alkaline Phosphatase 68 U/L (38-126) 09/13/24 20:58
Troponin I < 0.012 ng/ml 09/13/24 22:12
Impression/Plan
-
A/P: Patient is a 73y F with PMH significant for GERD, prior parotid tumor and recent spine surgery / CDiff infection who presents to ED complaining of fevers, fatigue and L facial swelling.
Parotitis
Sepsis secondary to the above
- Admit for further evaluation and treatment.
- Patient presents with leukocytosis, tachycardia, tachypnea and exam / imaging evidence of L parotitis.
- CT shows 3 small lesions within gland - likely represent adenopathy, but short term follow-up recommended, especially given history of parotid tumor (though this was very remote).
- Abx with Unasyn and Flagyl for now.
- Supportive care with pain control, IVFs, etc.
- Follow for clinical improvement.
Recent CDiff Colitis
- Patient notes CDiff infection after abx for sinusitis in July.
- Completed Vanco course only one week ago.
- Would restart vancomycin PO as CDiff prevention while on IV abx.
- Follow for any new diarrhea, etc.
GERD / Silva's Esophagus
- Some nausea today - ? related to new PO abx.
- Try to decrease PPI to once daily - especially given CDiff history.
- Follow for any new / worsening symptoms.
Chronic Back Pain
Lumbar DDD
s/p Spinal Stimulator
- Stable. Continue pain management.
Hypothyroidism
- Stable. Continue current T4 replacement.
Depression
- Stable. Continue current psychotropic med regimen.
DVT Prophylaxis: Lovenox
Code Status: Full
[2024-09-14] MEDS: UNASYN IV (01:28)
[2024-09-14 02:09] VITALS: BP 141/94
[2024-09-14] MEDS: PEPCID 20 MG PO (02:52)
[2024-09-14] MEDS: BENADRYL 25 MG PO (02:52)
[2024-09-14] MEDS: TYLENOL 650 MG PO ×4 (02:53→23:37)
[2024-09-14] MEDS: NSS 1000 IV ×2 (02:53→23:46)
--- NOTE | 2024-09-14 02:59 | W.PN.UPDATE ---
Update Note
Progress Note Update
After unasyn dose given in ED pt noted with pruritic, red rash. Will add benadryl po and dose of pepcid.
Will change to cefzolin q8 which per records she has tolerated before.
[2024-09-14] MEDS: SYNTHROID 75 MCG PO (05:36)
[2024-09-14] MEDS: FIRVANQ 125 MG PO ×3 (05:38→17:57)
[2024-09-14 05:57] LABS: Hematocrit 40.7 % (37.0-47.0); Hemoglobin 13.9 g/dL (12.0-16.0); Mean Corp Hgb Conc. 34.2 g/dL (33.0-37.0); Mean Corpuscular Volume 89.8 fL (81.0-99.0); Platelet Count 230 10^3/uL (130-400); Red Cell Dist. Width 13.3 % (11.5-14.5)
[2024-09-14 06:25] LABS: Blood Urea Nitrogen 9 mg/dl (7-17); Calcium 8.5 mg/dl (8.4-10.2); Carbon Dioxide 19 mmol/L (22-30); Chloride 109 mmol/L (98-107); Estimated Creatinine Clearance 70 ml/min; Glucose 156 mg/dl (70-99); Potassium 3.8 mmol/L (3.5-5.1); Sodium 135 mmol/L (135-145); eGFR > 60.00
[2024-09-14 07:00] VITALS: BP 102/70
[2024-09-14] MEDS: PROTONIX 40 MG PO (08:07)
[2024-09-14] MEDS: CRESTOR 5 MG PO (08:07)
[2024-09-14] MEDS: ABILIFY 2 MG PO (08:07)
[2024-09-14] MEDS: ANCEF 10 IV ×2 (08:08→16:00)
--- NOTE | 2024-09-14 12:09 | W.PN.HOSP.TC ---
Today's Communication/Plan
-
Monitor vital signs see plan
Continue with antibiotic
Continue to monitor for fevers, if persistent then will need ID evaluation
Follow cultures
Nonbillable note
Assessment / Plan
Assessment / Plan
General: No acute distress
HEENT: Other (Pos induration / edema L preauricular region with mild erythema and tenderness. Not fluctuant. No intra-oral lesions or drainage appreciated. Neck with bilateral, non-tender adenopathy.)
Respiratory: Clear; No Wheezes, Rales or Rhonchi
Cardiac: S1/S2, Regular Rhythm and Murmur (II/ LYLY)
GI: Soft, Non Tender, Non Distended and Normal Bowel Sounds
Musculoskeletal: No Edema
Neuro: AO x 3
Parotitis
Sepsis secondary to the above
- Patient presents with leukocytosis, tachycardia, tachypnea and exam / imaging evidence of L parotitis.
- CT shows 3 small lesions within gland - likely represent adenopathy, but short term follow-up recommended, especially given history of parotid tumor (though this was very remote). No drainable pocket
Was started on Unasyn, developed rash. Now on cefazolin and Flagyl.
Fever overnight, if continues to be febrile then will need ID evaluation. Follow-up with blood culture
- Supportive care with pain control
Recent CDiff Colitis
- Patient notes CDiff infection after abx for sinusitis in July.
- Completed Vanco course only one week ago.
- Would restart vancomycin PO as CDiff prevention while on IV abx.
- Follow for any new diarrhea, etc.
GERD / Silav's Esophagus
- Some nausea today - ? related to new PO abx.
- Try to decrease PPI to once daily - especially given CDiff history.
- Follow for any new / worsening symptoms.
Chronic Back Pain
Lumbar DDD
s/p Spinal Stimulator
- Stable. Continue pain management.
Hypothyroidism
- Stable. Continue current T4 replacement.
Depression
- Stable. Continue current psychotropic med regimen.
DVT Prophylaxis: Lovenox
Code Status: Full
Anticipated Discharge: > 48 hours
Subjective/Interval History
-
Date of Service: September 14, 2024
Denies pain
Objective Data
-
Labs:
Laboratory Results
09/14/24
05:39
WBC 18.5 H
Hgb 13.9
Hct 40.7
Plt Count 230
Sodium 135
Potassium 3.8
Chloride 109 H
Carbon Dioxide 19 L
BUN 9
Creatinine 0.8
Glucose 156 H
Calcium 8.5
Vital Signs:
Vital Signs
Temp Pulse Resp BP Pulse Ox
98.9 F 103 17 102/70 96
09/14/24 07:00 09/14/24 07:00 09/14/24 07:00 09/14/24 07:00 09/14/24 07:00
--- NOTE | 2024-09-14 13:28 | CM ---
Regino met with Kristin at bedside to complete IA. Kristin lives alone in a one story home with two steps to enter. Currently she functions independently. She occasionally uses a cane outside, and has used [facility] for home PT.
Plan: patient to return home at discharge. She will have friends check on her but no one will stay with her.
[2024-09-14 15:00] VITALS: BP 124/77
[2024-09-14] MEDS: VISBIOME 1 CAP PO (15:59)
[2024-09-14] MEDS: COMPAZINE 5 MG IV (16:03)
[2024-09-14] MEDS: LOVENOX 40 MG SC (17:57)
[2024-09-14] MEDS: QUESTRAN 4 GRAM PO (23:00)
[2024-09-14 23:21] VITALS: BP 157/92
[2024-09-15] MEDS: ANCEF 10 IV ×2 (00:14→08:42)
[2024-09-15] MEDS: FIRVANQ 125 MG PO ×4 (00:15→21:41)
[2024-09-15] MEDS: TYLENOL 650 MG PO ×3 (04:14→18:21)
[2024-09-15] MEDS: SYNTHROID 75 MCG PO (05:29)
[2024-09-15 06:00] VITALS: BMI 29.0
[2024-09-15 06:49] LABS: Hematocrit 36.8 % (37.0-47.0); Hemoglobin 12.9 g/dL (12.0-16.0); Mean Corp Hgb Conc. 35.1 g/dL (33.0-37.0); Mean Corpuscular Volume 88.9 fL (81.0-99.0); Nucleated Red Blood Cells % 0 %; Platelet Count 181 10^3/uL (130-400); Red Cell Dist. Width 13.3 % (11.5-14.5)
[2024-09-15 07:16] LABS: Blood Urea Nitrogen 6 mg/dl (7-17); Calcium 7.9 mg/dl (8.4-10.2); Carbon Dioxide 19 mmol/L (22-30); Chloride 107 mmol/L (98-107); Estimated Creatinine Clearance 79 ml/min; Glucose 132 mg/dl (70-99); Potassium 3.4 mmol/L (3.5-5.1); Sodium 134 mmol/L (135-145); eGFR > 60.00
[2024-09-15 07:28] VITALS: BP 145/78
[2024-09-15] MEDS: PROTONIX 40 MG PO (08:42)
[2024-09-15] MEDS: CRESTOR 5 MG PO (08:42)
[2024-09-15] MEDS: ABILIFY 2 MG PO (08:42)
[2024-09-15] MEDS: FLAGYL 500 MG 100 IV (08:43)
[2024-09-15] MEDS: NSS 1000 IV (10:57)
[2024-09-15] MEDS: NSS IV (11:52)
[2024-09-15 12:49] LABS: Glucose - Point of Care 111 mg/dl (70-99)
--- NOTE | 2024-09-15 12:59 | W.PN.HOSP.TC ---
Today's Communication/Plan
-
Monitor vital signs see plan
Follow fever curve
Consult infectious disease
Continue with antibiotics
follow cx
Assessment / Plan
Assessment / Plan
General: No acute distress
HEENT: Other (Pos induration / edema L preauricular region with mild erythema and tenderness. Not fluctuant. No intra-oral lesions or drainage appreciated. Neck with bilateral, non-tender adenopathy.)
Respiratory: Clear; No Wheezes, Rales or Rhonchi
Cardiac: S1/S2, Regular Rhythm and Murmur (II/ LYLY)
GI: Soft, Non Tender, Non Distended and Normal Bowel Sounds
Musculoskeletal: No Edema
Neuro: AO x 3
Parotitis
Sepsis secondary to the above
- Patient presents with leukocytosis, tachycardia, tachypnea and exam / imaging evidence of L parotitis.
- CT shows 3 small lesions within gland - likely represent adenopathy, but short term follow-up recommended, especially given history of parotid tumor (though this was very remote). No drainable pocket
Was started on Unasyn, developed rash. Now on cefazolin and Flagyl.
Persistent fever, ID evaluation. Follow-up with blood culture
- Supportive care with pain control
Recent CDiff Colitis
- Patient notes CDiff infection after abx for sinusitis in July.
- Completed Vanco course only one week ago.
- Would restart vancomycin PO as CDiff prevention while on IV abx.
- Follow for any new diarrhea, etc.
GERD / Silva's Esophagus
- Try to decrease PPI to once daily - especially given CDiff history.
- Follow for any new / worsening symptoms.
Chronic Back Pain
Lumbar DDD
s/p Spinal Stimulator
- Stable. Continue pain management.
Hypothyroidism
- Stable. Continue current T4 replacement.
Depression
- Stable. Continue current psychotropic med regimen.
DVT Prophylaxis: Lovenox
Code Status: Full
I spent a total of 52 minutes with the patient or on the floor. More than 50% of this time involved counseling and coordination of care.
Anticipated Discharge: > 48 hours
Subjective/Interval History
-
Date of Service: September 15, 2024
Feels pain is little better
Objective Data
-
Labs:
Laboratory Results
09/15/24
05:47
WBC 16.2 H
Hgb 12.9
Hct 36.8 L
Plt Count 181 D
Sodium 134 L
Potassium 3.4 L
Chloride 107
Carbon Dioxide 19 L
BUN 6 L
Creatinine 0.7
Glucose 132 H
Calcium 7.9 L
Vital Signs:
Vital Signs
Temp Pulse Resp BP Pulse Ox
102.6 F H 94 16 145/78 94
09/15/24 12:55 09/15/24 07:28 09/15/24 07:28 09/15/24 07:28 09/15/24 07:28
I&O
09/14/24 09/15/24 09/16/24
06:59 06:59 06:59
Intake Total 2079
Balance 2079
--- NOTE | 2024-09-15 14:42 | CON.ID ---
Consultation
-
Date/Time Consultation Requested: 09/15/2024 0911
Date/Time Consultation Performed: 09/15/2024 1420
Requesting Provider: Dr. Ryan
Performing Provider: Dr. Skelton
Reason for Consultation: left parotitis
Chief Complaint / Past History
History of Present Illness
Kristin Jansen is a 73-year-old female being evaluated at the request of Dr. Ryan regarding fever and parotitis. History is obtained from chart review, along with patient interview.
The patient has a significant past medical history of essential tremor and reports that approximate 3 weeks ago she developed some 'cracking' in her left TMJ region. She initially saw her dentist, but she reports that the dentist cannot find any
abnormality and she was referred to her PCP care. Following evaluation by her PCP, she was started on a course of Augmentin, which the patient states was for 'sinusitis'. According to ER notes the patient had developed extreme weakness, and she
placed a call to her friend who found her leaning against the sink at home. She additionally was reported to have a fever, and generalized weakness was reported. Ultimately she was brought to the emergency room for further evaluation. Here, she
was found to have a leukocytosis. She has been started on empiric antibiotics for left parotitis. Despite the initiation of antibiotics the patient has continued to have fever, and Infectious Diseases asked to comment upon further antimicrobial
management.
Currently she notes ongoing left parotid discomfort, and some difficulty with opening her jaw. She notes fevers. She denies any chest pain or shortness of breath. She denies any abdominal pain.
Past History
Additional Past Medical History:
Benign Essential Tremor
GERD / Silva's Esophagus
Depression
Lumbar DDD
Chronic Back Pain
Hypothyroidism
Right Parotid Tumor (1970s)
Benign Spinal Tumor
Allergy History:
latex Allergy (Verified 09/14/24 04:59)
Unknown
oxycodone (From Percocet) Allergy (Verified 07/11/23 15:19)
hallucinations
Sulfa (Sulfonamide Antibiotics) Allergy (Verified 07/11/23 15:19)
'Spacey' feeling
zoledronic acid Adverse Reaction (Verified 07/13/23 10:09)
FLU LIKE SYMPTOMS
Current Antibiotics:
Cefazolin
Metronidazole
Oral vancomycin
Social History
Tobacco: Non-Smoker
Alcohol: None
Drug: None
Personal: Single
Living: Alone
Employment: Retired
Family History
Family History: Not Pertinent
Review of Systems
Vital Signs
Temp Pulse Resp BP Pulse Ox
102.6 F H 94 16 145/78 94
09/15/24 12:55 09/15/24 07:28 09/15/24 07:28 09/15/24 07:28 09/15/24 07:28
Physical Exam
Physical Exam
Constitutional: Comfortable, Chronically Ill and Non-toxic
Eyes: No Conjunctival Hemorrhage and Sclera Anicteric
Oral: No Thrush, No Ulcers and Other (Left parotid swelling with overlying erythema noted.)
Cardiovascular: S1/S2; Negative S3/S4
Pulmonary: Clear; Negative Wheezes or Rales
Gastrointestinal: Soft and Non Tender
Neurological: Awake and Alert
Psychological: Calm
Lab / Diagnostic Study Results
09/15/24 05:47
09/15/24 05:47
Abs Immat Gran (auto) 0.1 10^3/uL (0-0.05) H 09/15/24 05:47
Absolute Neuts (auto) 13.7 10^3/uL (1.4-6.5) H 09/15/24 05:47
Absolute Lymphs (auto) 0.6 10^3/uL (1.2-3.4) L 09/15/24 05:47
Absolute Monos (auto) 1.4 10^3/uL (0.1-0.6) H 09/15/24 05:47
Absolute Basos (auto) 0.0 10^3/uL (0-0.2) 09/15/24 05:47
Immature Gran % 0.6 % (0-0.5) H 09/15/24 05:47
Neutrophils % 84.7 % (42.2-75.2) H 09/15/24 05:47
Lymphocytes % 3.6 % (20.5-51.1) L 09/15/24 05:47
Monocytes % 8.9 % (1.7-9.3) 09/15/24 05:47
Eosinophils % 2.0 % (0-6) 09/15/24 05:47
Basophils % 0.2 % (0-2) 09/15/24 05:47
PT 13.4 Sec (11.4-14.6) 09/13/24 22:12
INR 0.99 09/13/24 22:12
Lactic Acid Cancelled 09/14/24 02:15
Microbiology Results
Micro:
09/14/24 02:56 MRSA Screen - Final
Nose No Methicillin Resistant Staphylococcus aureus isolated.
09/13/24 22:12 Blood Culture - Preliminary
Blood/Venous No Growth in 24 hours- Final report to follow
09/13/24 22:12 Blood Culture - Preliminary
Blood/Venous No Growth in 24 hours- Final report to follow
Imaging:
09/13/2024 CT neck with IV contrast: Left parotitis with asymmetric enlargement and inflammation of the left parotid gland. Probable left intraparotid lymph node, but recommend following up imaging after treatment for reevaluation. There is
bilateral cervical lymphadenopathy. Please see full dictation for additional detail.
Assessment / Plan
Left parotitis
Leukocytosis
Fevers
Recent Hx C. difficile
Benign Essential Tremor
GERD / Silva's Esophagus
Depression
Lumbar DDD
Chronic Back Pain
Hypothyroidism
Recommendations:
Discontinue further cefazolin/metronidazole
Transition to Zosyn 3.375 g IV every 6 hours
Continue enteral vancomycin for C. difficile prophylaxis. Decrease to every 12 hours dosing.
Monitor white count and temperature curve.
Consider oral sialogogues
Monitor for clinical improvement.
Care Review
Plan reviewed with: Physician (Hospitalist)
[2024-09-15] MEDS: VISBIOME 1 CAP PO (15:05)
[2024-09-15 15:43] VITALS: BP 146/84
[2024-09-15] MEDS: ZOSYN 50 IV ×2 (16:15→21:41)
[2024-09-15] MEDS: LOVENOX 40 MG SC (17:10)
[2024-09-15] MEDS: TORADOL 10 MG IV (18:32)
[2024-09-15] MEDS: FLUSH (NSS) 2 FLUSH IV (21:42)
[2024-09-15] MEDS: QUESTRAN 4 GRAM PO (23:15)
[2024-09-16 00:47] VITALS: BP 164/97
[2024-09-16] MEDS: TORADOL 10 MG IV (02:02)
[2024-09-16] MEDS: FLUSH (NSS) 2 FLUSH IV ×3 (02:03→22:00)
[2024-09-16] MEDS: ZOSYN 50 IV ×4 (04:23→22:00)
[2024-09-16] MEDS: SYNTHROID 75 MCG PO (05:03)
[2024-09-16 06:00] VITALS: BMI 28.7
[2024-09-16 07:09] LABS: Blood Urea Nitrogen 8 mg/dl (7-17); Calcium 8.3 mg/dl (8.4-10.2); Carbon Dioxide 21 mmol/L (22-30); Chloride 106 mmol/L (98-107); Estimated Creatinine Clearance 79 ml/min; Glucose 115 mg/dl (70-99); Potassium 3.3 mmol/L (3.5-5.1); Sodium 134 mmol/L (135-145); eGFR > 60.00
[2024-09-16 07:35] LABS: Hematocrit 38.0 % (37.0-47.0); Hemoglobin 13.4 g/dL (12.0-16.0); Mean Corp Hgb Conc. 35.3 g/dL (33.0-37.0); Mean Corpuscular Volume 87.8 fL (81.0-99.0); Nucleated Red Blood Cells % 0 %; Platelet Count 137 10^3/uL (130-400); Red Cell Dist. Width 13.2 % (11.5-14.5)
[2024-09-16 08:04] VITALS: BP 162/96
[2024-09-16] MEDS: ABILIFY 2 MG PO (08:53)
[2024-09-16] MEDS: FIRVANQ 125 MG PO ×2 (08:53→19:19)
[2024-09-16] MEDS: PROTONIX 40 MG PO (08:53)
[2024-09-16] MEDS: CRESTOR 5 MG PO (08:53)
[2024-09-16] MEDS: KCL 40 MEQ PO (08:54)
[2024-09-16 10:13] VITALS: BP 160/105
--- NOTE | 2024-09-16 11:02 | W.PN.HOSP.TC ---
Today's Communication/Plan
-
Monitor vital signs see plan
PT/OT
Follow fever curve
Continue with Zosyn
ID following
Assessment / Plan
Assessment / Plan
General: No acute distress
HEENT: Other (Pos induration / edema L preauricular region with mild erythema and tenderness. No intra-oral lesions or drainage appreciated)
Respiratory: Clear; No Wheezes, Rales or Rhonchi
Cardiac: S1/S2, Regular Rhythm and Murmur (II/ LYLY)
GI: Soft, Non Tender, Non Distended and Normal Bowel Sounds
Musculoskeletal: No Edema
Neuro: AO x 3
Parotitis
Sepsis secondary to the above
- Patient presents with leukocytosis, tachycardia, tachypnea and exam / imaging evidence of L parotitis.
- CT shows 3 small lesions within gland - likely represent adenopathy, but short term follow-up recommended, especially given history of parotid tumor (though this was very remote). No drainable pocket
Was started on Unasyn, developed rash. Appears to be tolerating Zosyn. Monitor
Persistent fever, ID following. Follow-up with blood culture NGTD
- Supportive care with pain control
Recent CDiff Colitis
- Patient notes CDiff infection after abx for sinusitis in July.
- Completed Vanco course only one week ago.
- P.o. Vanco for C. difficile prophylaxis
- Follow for any new diarrhea, etc.
GERD / Silva's Esophagus
- Try to decrease PPI to once daily - especially given CDiff history.
- Follow for any new / worsening symptoms.
Chronic Back Pain
Lumbar DDD
s/p Spinal Stimulator
- Stable. Continue pain management.
Hypothyroidism
- Stable. Continue current T4 replacement.
Depression
- Stable. Continue current psychotropic med regimen.
DVT Prophylaxis: Lovenox
Code Status: Full
I spent a total of 51 minutes with the patient or on the floor. More than 50% of this time involved counseling and coordination of care.
Anticipated Discharge: > 48 hours
Subjective/Interval History
-
Date of Service: September 16, 2024
Still has some pain
Objective Data
-
Labs:
Laboratory Results
09/16/24
06:21
WBC 14.2 H
Hgb 13.4
Hct 38.0
Plt Count 137 D
Sodium 134 L
Potassium 3.3 L
Chloride 106
Carbon Dioxide 21 L
BUN 8
Creatinine 0.7
Glucose 115 H
Calcium 8.3 L
Vital Signs:
Vital Signs
Temp Pulse Resp BP Pulse Ox
100 F 108 21 162/96 94
09/16/24 08:04 09/16/24 08:04 09/16/24 08:04 09/16/24 08:04 09/16/24 08:04
I&O
09/15/24 09/16/24 09/17/24
06:59 06:59 06:59
Intake Total 2079 178 / 178
Output Total 150 / 150
Balance 2079 1630 / 1630
[2024-09-16] MEDS: VISBIOME 1 CAP PO (15:03)
[2024-09-16 16:06] VITALS: BP 161/102
[2024-09-16] MEDS: LOVENOX 40 MG SC (17:48)
[2024-09-16] MEDS: QUESTRAN 4 GRAM PO (22:01)
[2024-09-16] MEDS: TYLENOL 650 MG PO (22:57)
[2024-09-16 23:13] VITALS: BP 158/87
[2024-09-17] MEDS: ZOSYN 50 IV ×4 (03:13→20:45)
[2024-09-17] MEDS: TYLENOL 650 MG PO ×4 (03:14→22:33)
[2024-09-17] MEDS: FLUSH (NSS) 2 FLUSH IV (03:18)
[2024-09-17] MEDS: SYNTHROID 75 MCG PO (04:45)
[2024-09-17 06:00] VITALS: BMI 28.5
[2024-09-17 07:33] VITALS: BP 99/74
[2024-09-17] MEDS: ABILIFY 2 MG PO (08:26)
[2024-09-17] MEDS: PROTONIX 40 MG PO (08:26)
[2024-09-17] MEDS: CRESTOR 5 MG PO (08:26)
[2024-09-17] MEDS: FIRVANQ 125 MG PO ×2 (08:27→20:46)
[2024-09-17] MEDS: TORADOL 10 MG IV ×2 (08:28→18:33)
[2024-09-17 09:54] VITALS: BP 107/75
[2024-09-17 10:11] LABS: Hematocrit 36.8 % (37.0-47.0); Hemoglobin 12.9 g/dL (12.0-16.0); Mean Corp Hgb Conc. 35.1 g/dL (33.0-37.0); Mean Corpuscular Volume 86.8 fL (81.0-99.0); Nucleated Red Blood Cells % 0 %; Platelet Count 97 10^3/uL (130-400); Red Cell Dist. Width 13.4 % (11.5-14.5)
[2024-09-17 10:27] LABS: Blood Urea Nitrogen 6 mg/dl (7-17); Calcium 8.0 mg/dl (8.4-10.2); Carbon Dioxide 20 mmol/L (22-30); Chloride 104 mmol/L (98-107); Estimated Creatinine Clearance 79 ml/min; Glucose 155 mg/dl (70-99); Potassium 3.4 mmol/L (3.5-5.1); Sodium 131 mmol/L (135-145); eGFR > 60.00
--- NOTE | 2024-09-17 10:47 | W.PN.HOSP.TC ---
Today's Communication/Plan
-
monitor vitals
see plan
replete K
follow fever curve
cw abx per ID
PT
Assessment / Plan
Assessment / Plan
General: No acute distress
HEENT: Other (Pos induration / edema L preauricular region with mild erythema and tenderness. No intra-oral lesions or drainage appreciated)
Respiratory: Clear; No Wheezes, Rales or Rhonchi
Cardiac: S1/S2, Regular Rhythm and Murmur (II/ LYLY)
GI: Soft, Non Tender, Non Distended and Normal Bowel Sounds
Musculoskeletal: No Edema
Neuro: AO x 3
Parotitis
Sepsis secondary to the above
- Patient presents with leukocytosis, tachycardia, tachypnea and exam / imaging evidence of L parotitis.
- CT shows 3 small lesions within gland - likely represent adenopathy, but short term follow-up recommended, especially given history of parotid tumor (though this was very remote). No drainable pocket
Was started on Unasyn, developed rash. Appears to be tolerating Zosyn. Monitor
Persistent fever, ID following. Follow-up with blood culture NGTD
- Supportive care with pain control
BCX NGTD
Recent CDiff Colitis
- Patient notes CDiff infection after abx for sinusitis in July.
- Completed Vanco course only one week ago.
- P.o. Vanco for C. difficile prophylaxis
- Follow for any new diarrhea, etc.
GERD / Silva's Esophagus
- Try to decrease PPI to once daily - especially given CDiff history.
- Follow for any new / worsening symptoms.
Hyponatremia
Monitor
Hypokalemia
Replete
Chronic Back Pain
Lumbar DDD
s/p Spinal Stimulator
- Stable. Continue pain management.
Hypothyroidism
- Stable. Continue current T4 replacement.
Depression
- Stable. Continue current psychotropic med regimen.
DVT Prophylaxis: Lovenox
Code Status: Full
Anticipated Discharge: Today
Subjective/Interval History
-
Date of Service: September 17, 2024
fever overnight
Objective Data
-
Labs:
Laboratory Results
09/17/24
09:44
WBC 15.0 H
Hgb 12.9
Hct 36.8 L
Plt Count 97 L D
Sodium 131 L
Potassium 3.4 L
Chloride 104
Carbon Dioxide 20 L
BUN 6 L
Creatinine 0.7
Glucose 155 H
Calcium 8.0 L
Vital Signs:
Vital Signs
Temp Pulse Resp BP Pulse Ox
98.3 F 90 20 107/75 98
09/17/24 09:54 09/17/24 09:54 09/17/24 09:54 09/17/24 09:54 09/17/24 09:54
I&O
09/16/24 09/17/24 09/18/24
06:59 06:59 06:59
Intake Total 1780 / 1780 1899
Output Total 150 / 150
Balance 1630 / 1630 1899
--- NOTE | 2024-09-17 12:01 | W.PN.ID1 ---
Date of Service
Date of Service: September 17, 2024
Today's Communication
Continue antibiotics.
Assessment / Plan
Left parotitis
Leukocytosis
Fevers
- Temp curve overall improved.
Thrombocytopenia
- New today, although general trend over the past several days.
Recent Hx C. difficile
Benign Essential Tremor
GERD / Silva's Esophagus
Depression
Lumbar DDD
Chronic Back Pain
Hypothyroidism
Recommendations:
Continue Zosyn 3.375 g IV every 6 hours
Continue enteral vancomycin for C. difficile prophylaxis. Decrease to every 12 hours dosing.
Monitor white count and temperature curve.
Consider oral sialogogues
Monitor for clinical improvement.
����������������������������������������������������������
Chief Complaint
-: Other (Left parotitis)
Subjective / Review of Systems
Patient seen and examined. Reports feeling somewhat improved today. Less left parotid pain. Temperature curve overall improved. Nursing has noted rash that has developed on the posterior thorax where patient in contact with bed sheets.
Vital Signs / Physical Exam
Vital Signs
Vital Signs
Temp Pulse Resp BP Pulse Ox
97.8 F 90 20 107/75 98
09/17/24 11:20 09/17/24 09:54 09/17/24 09:54 09/17/24 09:54 09/17/24 09:54
Physical Exam
Constitutional: No Acute Distress, Comfortable, Chronically Ill and Non-toxic
Eyes: Sclera Anicteric
Oropharyngeal: Other (Less left parotid discomfort to palpation. Slightly decreased swelling.)
Cardiovascular: S1/S2; Negative S3/S4
Pulmonary: Coarse
Skin: Rash (Macular rash noted on back and areas in contact with sheets)
Neurological: Awake and Alert
Psychological: Calm
Objective Data
Lab Data
Lab Results
09/17/24 09:44
09/17/24 09:44
PT 13.4 Sec (11.4-14.6) 09/13/24 22:12
INR 0.99 09/13/24 22:12
APTT 26.6 Sec (23.4-35.0) 09/13/24 22:12
Estimated Creat Clear 79 ml/min 09/17/24 09:44
Lactic Acid Cancelled 09/14/24 02:15
Total Bilirubin 1.2 mg/dl (0.2-1.3) 09/13/24 20:58
AST 22 U/L (14-36) 09/13/24 20:58
ALT 28 U/L (0-35) 09/13/24 20:58
Alkaline Phosphatase 68 U/L (38-126) 09/13/24 20:58
Most recent labs reviewed.
Micro Results:
09/13/24 22:12 Blood Culture - Preliminary
Blood/Venous No Growth in 72 hours- Final report to follow
09/13/24 22:12 Blood Culture - Preliminary
Blood/Venous No Growth in 72 hours- Final report to follow
09/14/24 02:56 MRSA Screen - Final
Nose No Methicillin Resistant Staphylococcus aureus isolated.
Imaging:
09/13/2024 CT neck with IV contrast: Left parotitis with asymmetric enlargement and inflammation of the left parotid gland. Probable left intraparotid lymph node, but recommend following up imaging after treatment for reevaluation. There is
bilateral cervical lymphadenopathy. Please see full dictation for additional detail.
[2024-09-17] MEDS: VISBIOME 1 CAP PO (14:02)
[2024-09-17] MEDS: KCL 20 MEQ PO (14:02)
[2024-09-17] MEDS: BENADRYL 25 MG PO (14:03)
--- NOTE | 2024-09-17 14:35 | PTCARENOTE ---
the patient had a temp 100.5 HR > 90 SBP in 90s. pt hot flushed and WBC 15. I gave patient tylenol . PT's fever broke and had profuse sweating, sheets changed, a large rash was noted on her entire posterior side it was red raised non itching non
flaky rash noted only on areas of skin incontact with the bottom sheets. ID saw rash and ordered hypoallergenic sheets. they were applied. Temp improved . PT now sleeping in room. pt is fall risk, bed alarm on
[2024-09-17 15:27] VITALS: BP 127/84
[2024-09-17] MEDS: LOVENOX 40 MG SC (16:54)
--- NOTE | 2024-09-17 21:54 | PTCARENOTE ---
Patient is c/o abdominal pain, unable to describe, states is a 7/10 at this time. Just received dose of Toradol at 18:33pm. Patient states to this RN she feels she is having the pain because she has not 'urinated in a while.' When asked how long a
while is, patient states 'since sometime late this afternoon.' Bladder scan performed, reading 42mls. Patient then states 'Oh, okay. Well then I am not going to worry about that.' Patient with call alonso in reach, will re-evaluate during hourly
rounds. Will monitor.
--- NOTE | 2024-09-17 22:41 | W.PN.UPDATE ---
Update Note
Progress Note Update
-Patient is febrile with temp 102.4, hr 108, RR 18, SPO2 07%, bp 163/97
-cbc, bmp, mag and lactic acid. Patient also reported abdominal pain to the nursing staff as she didn't urinate since earlier. Bladder scan with 42mls. Patient received Tylenol. Temp down to 99.
-During assessment, patient in bed comfortable with no signs of pain. Alert and oriented. Denies abdominal pain, denies urine urgency/ dysuria, Denies Respiratory symptoms.
-Lactic acid is---> 1.0
-Patient currently on Zosyn & vancomycin and followed by ID team. Tylenol PRN for fever.
[2024-09-17] MEDS: QUESTRAN 4 GRAM PO (22:51)
[2024-09-17 22:53] VITALS: BP 163/97
--- NOTE | 2024-09-17 23:15 | PTCARENOTE ---
Temp 102.4F, patient last high temp 7/. In addition to c/o abd pain, patient diaphoretic and with rigors at this time. Notified CHLOÉ Walls, Tylenol provided to patient, see MAR. Labs ordered at this time, will await results and determine
further intervention, if necessary per [employer]. Will monitor.
[2024-09-17 23:23] LABS: Hematocrit 39.4 % (37.0-47.0); Hemoglobin 13.7 g/dL (12.0-16.0); Mean Corp Hgb Conc. 34.8 g/dL (33.0-37.0); Mean Corpuscular Volume 87.8 fL (81.0-99.0); Red Cell Dist. Width 13.4 % (11.5-14.5)
[2024-09-17 23:33] LABS: Blood Urea Nitrogen 12 mg/dl (7-17); Calcium 8.1 mg/dl (8.4-10.2); Carbon Dioxide 23 mmol/L (22-30); Chloride 102 mmol/L (98-107); Estimated Creatinine Clearance 55 ml/min; Glucose 123 mg/dl (70-99); Magnesium 2.0 mg/dl (1.6-2.3); Potassium 3.7 mmol/L (3.5-5.1); Sodium 131 mmol/L (135-145); eGFR > 60.00
[2024-09-17 23:40] LABS: Platelet Count 80 10^3/uL (130-400)
[2024-09-18] MEDS: ZOSYN 50 IV ×2 (05:30→08:59)
[2024-09-18] MEDS: SYNTHROID 75 MCG PO (05:30)
[2024-09-18 06:00] VITALS: BMI 28.6
[2024-09-18 07:14] LABS: Hematocrit 38.7 % (37.0-47.0); Hemoglobin 13.5 g/dL (12.0-16.0); Mean Corp Hgb Conc. 34.9 g/dL (33.0-37.0); Mean Corpuscular Volume 86.6 fL (81.0-99.0); Platelet Count 82 10^3/uL (130-400); Red Cell Dist. Width 13.6 % (11.5-14.5)
[2024-09-18 07:30] LABS: Blood Urea Nitrogen 11 mg/dl (7-17); Calcium 8.2 mg/dl (8.4-10.2); Carbon Dioxide 23 mmol/L (22-30); Chloride 104 mmol/L (98-107); Estimated Creatinine Clearance 69 ml/min; Glucose 102 mg/dl (70-99); Potassium 3.5 mmol/L (3.5-5.1); Sodium 133 mmol/L (135-145); eGFR > 60.00
[2024-09-18 08:02] VITALS: BP 162/91
[2024-09-18 08:55] LABS: Nucleated Red Blood Cells % 0 %
[2024-09-18] MEDS: PROTONIX 40 MG PO (08:58)
[2024-09-18] MEDS: ABILIFY 2 MG PO (08:58)
[2024-09-18] MEDS: TYLENOL 650 MG PO ×3 (08:58→23:07)
[2024-09-18] MEDS: VISBIOME 1 CAP PO (08:58)
[2024-09-18] MEDS: CRESTOR 5 MG PO (08:58)
[2024-09-18] MEDS: BENADRYL 25 MG PO ×2 (08:58→16:06)
[2024-09-18] MEDS: FIRVANQ 125 MG PO ×2 (08:59→19:58)
--- NOTE | 2024-09-18 10:51 | W.PN.ID1 ---
Date of Service
Date of Service: September 18, 2024
Today's Communication
Continue abx. See below...
Assessment / Plan
Left parotitis
Leukocytosis
Fevers
Thrombocytopenia
Recent Hx C. difficile
Benign Essential Tremor
GERD / Silva's Esophagus
Depression
Lumbar DDD
Chronic Back Pain
Hypothyroidism
Recommendations:
Patient with progressive skin rash, now spreading onto trunk; possibly secondary to Zosyn.
Discontinue further Zosyn and transition to meropenem with close observation
Continue to monitor white count and temperature curve
Continue enteral vancomycin for C. difficile prophylaxis.
Monitor for clinical improvement.
����������������������������������������������������������
Chief Complaint
-: Other (Left parotitis)
Subjective / Review of Systems
Patient seen and examined. Reports ongoing fever. Nursing has reported progressive rash. Patient does not admit to pruritus
Vital Signs / Physical Exam
Vital Signs
Vital Signs
Temp Pulse Resp BP Pulse Ox
99.4 F 101 21 162/91 94
09/18/24 08:02 09/18/24 08:02 09/18/24 08:02 09/18/24 08:02 09/18/24 08:02
Physical Exam
Constitutional: No Acute Distress, Comfortable, Chronically Ill and Non-toxic
Eyes: Sclera Anicteric
Oropharyngeal: Other (Less left parotid discomfort to palpation. Slightly decreased swelling.)
Cardiovascular: S1/S2; Negative S3/S4
Pulmonary: Coarse
Skin: Rash (Progressive distribution, and now extension onto abdomen)
Neurological: Awake and Alert
Psychological: Calm
Objective Data
Lab Data
Lab Results
09/18/24 06:35
09/18/24 06:35
PT 13.4 Sec (11.4-14.6) 09/13/24 22:12
INR 0.99 09/13/24 22:12
APTT 26.6 Sec (23.4-35.0) 09/13/24 22:12
Estimated Creat Clear 69 ml/min 09/18/24 06:35
Lactic Acid 1.0 mmol/L (0.7-2.0) 09/17/24 23:12
Total Bilirubin 1.2 mg/dl (0.2-1.3) 09/13/24 20:58
AST 22 U/L (14-36) 09/13/24 20:58
ALT 28 U/L (0-35) 09/13/24 20:58
Alkaline Phosphatase 68 U/L (38-126) 09/13/24 20:58
Most recent labs reviewed.
Micro Results:
09/13/24 22:12 Blood Culture - Preliminary
Blood/Venous No Growth in 4 days- Final report to follow
09/13/24 22:12 Blood Culture - Preliminary
Blood/Venous No Growth in 4 days- Final report to follow
09/14/24 02:56 MRSA Screen - Final
Nose No Methicillin Resistant Staphylococcus aureus isolated.
Imaging:
09/13/2024 CT neck with IV contrast: Left parotitis with asymmetric enlargement and inflammation of the left parotid gland. Probable left intraparotid lymph node, but recommend following up imaging after treatment for reevaluation. There is
bilateral cervical lymphadenopathy. Please see full dictation for additional detail.
[2024-09-18 11:00] VITALS: BP 136/82
[2024-09-18] MEDS: TORADOL 10 MG IV (11:08)
[2024-09-18] MEDS: MERREM 500 MG IV ×3 (11:10→23:06)
[2024-09-18] MEDS: STERILE WATER FOR INJECTION 10 ML IV ×3 (11:11→23:05)
--- NOTE | 2024-09-18 11:15 | W.PN.HOSP.TC ---
Today's Communication/Plan
-
Monitor vitals
See plan
Follow fever curve
Monitor leukocytosis
Antibiotics switched to meropenem, monitor
PT
Assessment / Plan
Assessment / Plan
General: No acute distress
HEENT: Other (Pos induration / edema L preauricular region with mild erythema and tenderness. No intra-oral lesions or drainage appreciated)
Respiratory: Clear; No Wheezes, Rales or Rhonchi
Cardiac: S1/S2, Regular Rhythm and Murmur (II/ LYLY)
GI: Soft, Non Tender, Non Distended and Normal Bowel Sounds
Musculoskeletal: No Edema
Neuro: AO x 3
Parotitis
Sepsis secondary to the above
- Patient presents with leukocytosis, tachycardia, tachypnea and exam / imaging evidence of L parotitis.
- CT shows 3 small lesions within gland - likely represent adenopathy, but short term follow-up recommended, especially given history of parotid tumor (though this was very remote). No drainable pocket
Was started on Unasyn, developed rash. Appears to be tolerating Zosyn initially but now rash worse. ID changed antibiotics to meropenem. Monitor.
Persistent fever, ID following. Follow-up with blood culture NGTD
Monitor leukocytosis
- Supportive care with pain control
BCX NGTD
Recent CDiff Colitis
- Patient notes CDiff infection after abx for sinusitis in July.
- Completed Vanco course only one week ago.
- P.o. Vanco for C. difficile prophylaxis
- Follow for any new diarrhea, etc.
GERD / Silva's Esophagus
- Try to decrease PPI to once daily - especially given CDiff history.
- Follow for any new / worsening symptoms.
Hyponatremia
Monitor
Hypokalemia
Replete
Chronic Back Pain
Lumbar DDD
s/p Spinal Stimulator
- Stable. Continue pain management.
Hypothyroidism
- Stable. Continue current T4 replacement.
Depression
- Stable. Continue current psychotropic med regimen.
DVT Prophylaxis: Lovenox
Code Status: Full
I spent a total of 52 minutes with the patient or on the floor. More than 50% of this time involved counseling and coordination of care.
Anticipated Discharge: > 48 hours
Subjective/Interval History
-
Date of Service: September 18, 2024
denies pain at this time
Objective Data
-
Labs:
Laboratory Results
09/17/24 09/18/24
23:12 06:35
WBC 17.2 H 18.4 H
Hgb 13.7 13.5
Hct 39.4 38.7
Plt Count 80 L 82 L
Sodium 131 L 133 L
Potassium 3.7 3.5
Chloride 102 104
Carbon Dioxide 23 23
BUN 12 11
Creatinine 1.0 0.8
Glucose 123 H 102 H
Calcium 8.1 L 8.2 L
Vital Signs:
Vital Signs
Temp Pulse Resp BP Pulse Ox
98.7 F 98 16 136/82 94
09/18/24 11:00 09/18/24 11:00 09/18/24 11:00 09/18/24 11:00 09/18/24 11:00
I&O
09/17/24 09/18/24 09/19/24
06:59 06:59 06:59
Intake Total 1900 / 1900 960 / 960
Balance 1900 / 1900 960 / 960
[2024-09-18] MEDS: DIFLUCAN 150 MG PO (12:30)
[2024-09-18 15:57] VITALS: BP 127/64
[2024-09-18] MEDS: LOVENOX 40 MG SC (18:15)
[2024-09-18] MEDS: QUESTRAN 4 GRAM PO (22:01)
[2024-09-18 23:37] VITALS: BP 139/79
[2024-09-19] MEDS: SYNTHROID 75 MCG PO (05:12)
[2024-09-19] MEDS: MERREM 500 MG IV ×4 (05:12→23:04)
[2024-09-19] MEDS: STERILE WATER FOR INJECTION 10 ML IV ×4 (05:12→23:04)
[2024-09-19 07:14] LABS: Hematocrit 36.5 % (37.0-47.0); Hemoglobin 12.8 g/dL (12.0-16.0); Mean Corp Hgb Conc. 35.1 g/dL (33.0-37.0); Mean Corpuscular Volume 85.9 fL (81.0-99.0); Nucleated Red Blood Cells % 0 %; Platelet Count 104 10^3/uL (130-400); Red Cell Dist. Width 14.0 % (11.5-14.5)
[2024-09-19 07:18] LABS: Blood Urea Nitrogen 10 mg/dl (7-17); Calcium 7.9 mg/dl (8.4-10.2); Carbon Dioxide 24 mmol/L (22-30); Chloride 104 mmol/L (98-107); Estimated Creatinine Clearance 79 ml/min; Glucose 103 mg/dl (70-99); Potassium 3.3 mmol/L (3.5-5.1); Sodium 134 mmol/L (135-145); eGFR > 60.00
[2024-09-19 07:45] VITALS: BP 136/73
[2024-09-19] MEDS: PROTONIX 40 MG PO (07:57)
[2024-09-19] MEDS: FIRVANQ 125 MG PO ×2 (07:57→19:34)
[2024-09-19] MEDS: ABILIFY 2 MG PO (08:02)
[2024-09-19] MEDS: CRESTOR 5 MG PO (08:02)
[2024-09-19] MEDS: BENADRYL 25 MG PO ×2 (08:13→19:43)
[2024-09-19] MEDS: KCL 20 MEQ PO (08:41)
--- NOTE | 2024-09-19 10:57 | W.PN.HOSP.TC ---
Today's Communication/Plan
-
Monitor vital signs see plan
Follow fever curve
Continue with meropenem
ID following
Assessment / Plan
Assessment / Plan
General: No acute distress
HEENT: Other (Pos induration / edema L preauricular region with mild erythema and tenderness. No intra-oral lesions or drainage appreciated)
Respiratory: Clear; No Wheezes, Rales or Rhonchi
Cardiac: S1/S2, Regular Rhythm and Murmur (II/ LYLY)
GI: Soft, Non Tender, Non Distended and Normal Bowel Sounds
Musculoskeletal: No Edema
Neuro: AO x 3
Parotitis
Sepsis secondary to the above
- Patient presents with leukocytosis, tachycardia, tachypnea and exam / imaging evidence of L parotitis.
- CT shows 3 small lesions within gland - likely represent adenopathy, but short term follow-up recommended, especially given history of parotid tumor (though this was very remote). No drainable pocket
Was started on Unasyn, developed rash. Appears to be tolerating Zosyn initially but now rash worse. ID changed antibiotics to meropenem. Monitor.
Persistent fever, ID following. Follow-up with blood culture NGTD
Monitor leukocytosis
- Supportive care with pain control
BCX NGTD
Continues to spike fever, might need repeat imaging if does not improve
Recent CDiff Colitis
- Patient notes CDiff infection after abx for sinusitis in July.
- Completed Vanco course only one week ago.
- P.o. Vanco for C. difficile prophylaxis
- Follow for any new diarrhea, etc.
GERD / Silva's Esophagus
- Try to decrease PPI to once daily - especially given CDiff history.
- Follow for any new / worsening symptoms.
Hyponatremia
Monitor
Hypokalemia
Replete
Chronic Back Pain
Lumbar DDD
s/p Spinal Stimulator
- Stable. Continue pain management.
Hypothyroidism
- Stable. Continue current T4 replacement.
Depression
- Stable. Continue current psychotropic med regimen.
DVT Prophylaxis: Lovenox
Code Status: Full
Anticipated Discharge: 24 - 48 hours
Subjective/Interval History
-
Date of Service: September 19, 2024
Denies pain
Objective Data
-
Labs:
Laboratory Results
09/19/24
06:09
WBC 17.6 H
Hgb 12.8
Hct 36.5 L
Plt Count 104 L D
Sodium 134 L
Potassium 3.3 L
Chloride 104
Carbon Dioxide 24
BUN 10
Creatinine 0.7
Glucose 103 H
Calcium 7.9 L
Vital Signs:
Vital Signs
Temp Pulse Resp BP Pulse Ox
99.2 F 93 18 136/73 94
09/19/24 07:45 09/19/24 07:45 09/19/24 07:45 09/19/24 07:45 09/19/24 08:00
I&O
09/18/24 09/19/24 09/20/24
06:59 06:59 06:59
Intake Total 960 / 960 2009
Balance 960 / 960 2009
[2024-09-19] MEDS: VISBIOME 1 CAP PO (14:25)
--- NOTE | 2024-09-19 15:14 | W.PN.ID1 ---
Date of Service
Date of Service: September 19, 2024
Today's Communication
Continue antibiotics.
Assessment / Plan
Left parotitis
Leukocytosis
Fevers
Thrombocytopenia
Recent Hx C. difficile
Rash, suspect secondary to Zosyn
Benign Essential Tremor
GERD / Silva's Esophagus
Depression
Lumbar DDD
Chronic Back Pain
Hypothyroidism
Recommendations:
Continue meropenem.
Continue to monitor white count and temperature curve
Continue enteral vancomycin for C. difficile prophylaxis.
Monitor for clinical improvement.
����������������������������������������������������������
Chief Complaint
-: Other (Left parotitis)
Subjective / Review of Systems
Review of Systems: No Fever and No Chills
Vital Signs / Physical Exam
Vital Signs
Vital Signs
Temp Pulse Resp BP Pulse Ox
99.8 F 93 18 136/73 94
09/19/24 11:54 09/19/24 07:45 09/19/24 07:45 09/19/24 07:45 09/19/24 08:00
Physical Exam
Constitutional: No Acute Distress and Comfortable
Eyes: Sclera Anicteric
Oropharyngeal: Other (Less left parotid discomfort to palpation. Slightly decreased swelling.)
Cardiovascular: S1/S2; Negative S3/S4
Pulmonary: Coarse
Skin: Rash (Progressive distribution, with more confluence, overall density mildly diminished.)
Neurological: Awake and Alert
Psychological: Calm
Objective Data
Lab Data
Lab Results
09/19/24 06:09
09/19/24 06:09
PT 13.4 Sec (11.4-14.6) 09/13/24 22:12
INR 0.99 09/13/24 22:12
APTT 26.6 Sec (23.4-35.0) 09/13/24 22:12
Estimated Creat Clear 79 ml/min 09/19/24 06:09
Lactic Acid 1.0 mmol/L (0.7-2.0) 09/17/24 23:12
Total Bilirubin 1.2 mg/dl (0.2-1.3) 09/13/24 20:58
AST 22 U/L (14-36) 09/13/24 20:58
ALT 28 U/L (0-35) 09/13/24 20:58
Alkaline Phosphatase 68 U/L (38-126) 09/13/24 20:58
Most recent labs reviewed.
Micro Results:
09/13/24 22:12 Blood Culture - Final
Blood/Venous No Growth - Final Report
09/13/24 22:12 Blood Culture - Final
Blood/Venous No Growth - Final Report
09/14/24 02:56 MRSA Screen - Final
Nose No Methicillin Resistant Staphylococcus aureus isolated.
Imaging:
09/13/2024 CT neck with IV contrast: Left parotitis with asymmetric enlargement and inflammation of the left parotid gland. Probable left intraparotid lymph node, but recommend following up imaging after treatment for reevaluation. There is
bilateral cervical lymphadenopathy. Please see full dictation for additional detail.
[2024-09-19 16:00] VITALS: BP 114/73
[2024-09-19] MEDS: LOVENOX 40 MG SC (17:04)
[2024-09-19] MEDS: QUESTRAN 4 GRAM PO (22:05)
[2024-09-19 23:24] VITALS: BP 131/81
[2024-09-20] MEDS: SYNTHROID 75 MCG PO (05:20)
[2024-09-20] MEDS: STERILE WATER FOR INJECTION 10 ML IV ×4 (05:20→23:29)
[2024-09-20] MEDS: MERREM 500 MG IV ×4 (05:20→23:29)
[2024-09-20 05:44] VITALS: BMI 28.5
[2024-09-20 06:35] LABS: Blood Urea Nitrogen 10 mg/dl (7-17); Calcium 8.0 mg/dl (8.4-10.2); Carbon Dioxide 23 mmol/L (22-30); Chloride 106 mmol/L (98-107); Estimated Creatinine Clearance 79 ml/min; Glucose 124 mg/dl (70-99); Potassium 3.5 mmol/L (3.5-5.1); Sodium 136 mmol/L (135-145); eGFR > 60.00
[2024-09-20 06:37] LABS: Hematocrit 34.3 % (37.0-47.0); Hemoglobin 12.1 g/dL (12.0-16.0); Mean Corp Hgb Conc. 35.3 g/dL (33.0-37.0); Mean Corpuscular Volume 86.2 fL (81.0-99.0); Platelet Count 163 10^3/uL (130-400); Red Cell Dist. Width 14.0 % (11.5-14.5)
[2024-09-20 07:30] LABS: Nucleated Red Blood Cells % 0 %
[2024-09-20 07:53] VITALS: BP 154/79
[2024-09-20] MEDS: ABILIFY 2 MG PO (08:28)
[2024-09-20] MEDS: CRESTOR 5 MG PO (08:28)
[2024-09-20] MEDS: PROTONIX 40 MG PO (08:28)
[2024-09-20] MEDS: BENADRYL 25 MG PO (08:28)
[2024-09-20] MEDS: FIRVANQ 125 MG PO ×2 (08:31→19:56)
--- NOTE | 2024-09-20 11:27 | W.PN.HOSP.TC ---
Today's Communication/Plan
-
Monitor vital signs
see plan
Continue with meropenem per infectious disease
Follow fever curve
Needs SNF, case filler aware
Assessment / Plan
Assessment / Plan
General: No acute distress
HEENT: Other (Pos induration / edema L preauricular region. No intra-oral lesions or drainage appreciated)
Respiratory: Clear; No Wheezes, Rales or Rhonchi
Cardiac: S1/S2, Regular Rhythm and Murmur (II/ LYLY)
GI: Soft, Non Tender, Non Distended and Normal Bowel Sounds
Musculoskeletal: No Edema
Neuro: AO x 3
Parotitis
Sepsis secondary to the above
- Patient presents with leukocytosis, tachycardia, tachypnea and exam / imaging evidence of L parotitis.
- CT shows 3 small lesions within gland - likely represent adenopathy, but short term follow-up recommended, especially given history of parotid tumor (though this was very remote). No drainable pocket
Was started on Unasyn, developed rash. Appears to be tolerating Zosyn initially but now rash worse. ID changed antibiotics to meropenem. Monitor.
Persistent fever, ID following. Follow-up with blood culture NGTD
Monitor leukocytosis
- Supportive care with pain control
BCX NGTD
If continues to spike fever, might need repeat imaging if does not improve
Recent CDiff Colitis
- Patient notes CDiff infection after abx for sinusitis in July.
- Completed Vanco course only one week ago.
- P.o. Vanco for C. difficile prophylaxis
- Follow for any new diarrhea, etc.
GERD / Silva's Esophagus
- Try to decrease PPI to once daily - especially given CDiff history.
- Follow for any new / worsening symptoms.
Hyponatremia
Monitor
Hypokalemia
Replete
Chronic Back Pain
Lumbar DDD
s/p Spinal Stimulator
- Stable. Continue pain management.
Hypothyroidism
- Stable. Continue current T4 replacement.
Depression
- Stable. Continue current psychotropic med regimen.
DVT Prophylaxis: Lovenox
Code Status: Full
Anticipated Discharge: 24 - 48 hours
Subjective/Interval History
-
Date of Service: September 20, 2024
Denies pain
Objective Data
-
Labs:
Laboratory Results
09/20/24
05:44
WBC 14.7 H
Hgb 12.1
Hct 34.3 L
Plt Count 163 D
Sodium 136
Potassium 3.5
Chloride 106
Carbon Dioxide 23
BUN 10
Creatinine 0.7
Glucose 124 H
Calcium 8.0 L
Vital Signs:
Vital Signs
Temp Pulse Resp BP Pulse Ox
98.1 F 69 12 154/79 94
09/20/24 07:53 09/20/24 07:53 09/20/24 07:53 09/20/24 07:53 09/20/24 07:53
I&O
09/19/24 09/20/24 09/21/24
06:59 06:59 06:59
Intake Total 2009 840 / 840
Balance 2009 840 / 840
--- NOTE | 2024-09-20 14:04 | W.PN.ID1 ---
Date of Service
Date of Service: September 20, 2024
Today's Communication
Continue antibiotics.
Assessment / Plan
Left parotitis
Leukocytosis
Fevers
Thrombocytopenia
Recent Hx C. difficile
Rash, suspect secondary to Zosyn
Benign Essential Tremor
GERD / Silva's Esophagus
Depression
Lumbar DDD
Chronic Back Pain
Hypothyroidism
Recommendations:
Continue meropenem.
Continue to monitor white count and temperature curve
Continue enteral vancomycin for C. difficile prophylaxis.
Monitor for ongoing clinical improvement.
����������������������������������������������������������
Chief Complaint
-: Other (Left parotitis)
Subjective / Review of Systems
Patient overall feeling somewhat improved today.
Vital Signs / Physical Exam
Vital Signs
Vital Signs
Temp Pulse Resp BP Pulse Ox
98.1 F 69 12 154/79 94
09/20/24 07:53 09/20/24 07:53 09/20/24 07:53 09/20/24 07:53 09/20/24 09:30
Physical Exam
Constitutional: No Acute Distress and Comfortable
Eyes: Sclera Anicteric
Oropharyngeal: Other (Less left parotid discomfort to palpation. Slightly decreased swelling.)
Cardiovascular: S1/S2; Negative S3/S4
Pulmonary: Coarse
Skin: Rash (Stable distribution, although with more confluence, erythema improved, though.)
Neurological: Awake and Alert
Psychological: Calm
Objective Data
Lab Data
Lab Results
09/20/24 05:44
09/20/24 05:44
PT 13.4 Sec (11.4-14.6) 09/13/24 22:12
INR 0.99 09/13/24 22:12
APTT 26.6 Sec (23.4-35.0) 09/13/24 22:12
Estimated Creat Clear 79 ml/min 09/20/24 05:44
Lactic Acid 1.0 mmol/L (0.7-2.0) 09/17/24 23:12
Total Bilirubin 1.2 mg/dl (0.2-1.3) 09/13/24 20:58
AST 22 U/L (14-36) 09/13/24 20:58
ALT 28 U/L (0-35) 09/13/24 20:58
Alkaline Phosphatase 68 U/L (38-126) 09/13/24 20:58
Most recent labs reviewed.
Micro Results:
09/13/24 22:12 Blood Culture - Final
Blood/Venous No Growth - Final Report
09/13/24 22:12 Blood Culture - Final
Blood/Venous No Growth - Final Report
09/14/24 02:56 MRSA Screen - Final
Nose No Methicillin Resistant Staphylococcus aureus isolated.
Imaging:
09/13/2024 CT neck with IV contrast: Left parotitis with asymmetric enlargement and inflammation of the left parotid gland. Probable left intraparotid lymph node, but recommend following up imaging after treatment for reevaluation. There is
bilateral cervical lymphadenopathy. Please see full dictation for additional detail.
[2024-09-20] MEDS: VISBIOME 1 CAP PO (14:37)
[2024-09-20 15:00] VITALS: BP 122/73
[2024-09-20] MEDS: LOVENOX 40 MG SC (17:53)
[2024-09-20 23:11] VITALS: BP 153/77
[2024-09-20] MEDS: QUESTRAN 4 GRAM PO (23:28)
[2024-09-21] MEDS: SYNTHROID 75 MCG PO (05:48)
[2024-09-21] MEDS: STERILE WATER FOR INJECTION 10 ML IV (05:48)
[2024-09-21] MEDS: MERREM 500 MG IV (05:49)
[2024-09-21 06:00] VITALS: BMI 28.6
[2024-09-21 06:54] LABS: Hematocrit 34.2 % (37.0-47.0); Hemoglobin 11.8 g/dL (12.0-16.0); Mean Corp Hgb Conc. 34.5 g/dL (33.0-37.0); Mean Corpuscular Volume 86.6 fL (81.0-99.0); Platelet Count 232 10^3/uL (130-400); Red Cell Dist. Width 14.6 % (11.5-14.5)
[2024-09-21 07:00] VITALS: BP 158/88
[2024-09-21 07:04] LABS: Blood Urea Nitrogen 9 mg/dl (7-17); Calcium 7.8 mg/dl (8.4-10.2); Carbon Dioxide 24 mmol/L (22-30); Chloride 107 mmol/L (98-107); Estimated Creatinine Clearance 92 ml/min; Glucose 119 mg/dl (70-99); Potassium 3.7 mmol/L (3.5-5.1); Sodium 136 mmol/L (135-145); eGFR > 60.00
[2024-09-21] MEDS: ABILIFY 2 MG PO (09:43)
[2024-09-21] MEDS: CRESTOR 5 MG PO (09:43)
[2024-09-21] MEDS: FIRVANQ 125 MG PO ×2 (09:43→20:45)
[2024-09-21] MEDS: PROTONIX 40 MG PO (09:43)
[2024-09-21 09:57] LABS: Nucleated Red Blood Cells % 0 %
--- NOTE | 2024-09-21 10:56 | W.PN.HOSP.TC ---
Today's Communication/Plan
-
Monitor vital signs see plan
Follow fever curve
Continue with meropenem per ID
Needs SNF, case operator aware
Assessment / Plan
Assessment / Plan
General: No acute distress
HEENT: Other (Pos induration / edema L preauricular region. No intra-oral lesions or drainage appreciated)
Respiratory: Clear; No Wheezes, Rales or Rhonchi
Cardiac: S1/S2, Regular Rhythm and Murmur (II/ LYLY)
GI: Soft, Non Tender, Non Distended and Normal Bowel Sounds
Musculoskeletal: No Edema
Neuro: AO x 3
Parotitis
Sepsis secondary to the above
- Physical exam continues to improve with left preauricular region swelling
- CT shows 3 small lesions within gland - likely represent adenopathy, but short term follow-up recommended, especially given history of parotid tumor (though this was very remote). No drainable pocket
Was started on Unasyn, developed rash. Appears to be tolerating Zosyn initially but now rash worse. ID changed antibiotics to meropenem. Monitor.
Persistent fever, ID following. Follow-up with blood culture NGTD
Monitor leukocytosis
- Supportive care with pain control
BCX NGTD
If continues to spike fever, might need repeat imaging if does not improve
Recent CDiff Colitis
- Patient notes CDiff infection after abx for sinusitis in July.
- Completed Vanco course only one week ago.
- P.o. Vanco for C. difficile prophylaxis
- Follow for any new diarrhea, etc.
GERD / Silva's Esophagus
- Try to decrease PPI to once daily - especially given CDiff history.
- Follow for any new / worsening symptoms.
Hyponatremia
Monitor
Hypokalemia
Replete
Chronic Back Pain
Lumbar DDD
s/p Spinal Stimulator
- Stable. Continue pain management.
Hypothyroidism
- Stable. Continue current T4 replacement.
Depression
- Stable. Continue current psychotropic med regimen.
DVT Prophylaxis: Lovenox
Code Status: Full
Anticipated Discharge: 24 - 48 hours
Subjective/Interval History
-
Date of Service: September 21, 2024
denies pain
Objective Data
-
Labs:
Laboratory Results
09/21/24
05:34
WBC 12.1 H
Hgb 11.8 L
Hct 34.2 L
Plt Count 232 D
Sodium 136
Potassium 3.7
Chloride 107
Carbon Dioxide 24
BUN 9
Creatinine 0.6
Glucose 119 H
Calcium 7.8 L
Vital Signs:
Vital Signs
Temp Pulse Resp BP Pulse Ox
97.5 F 74 18 158/88 96
09/21/24 07:00 09/21/24 07:00 09/21/24 07:00 09/21/24 07:00 09/21/24 07:00
I&O
09/20/24 09/21/24 09/22/24
06:59 06:59 06:59
Intake Total 840 / 840 1080 / 1080
Balance 840 / 840 1080 / 1080
--- NOTE | 2024-09-21 11:45 | W.PN.ID1 ---
Date of Service
Date of Service: September 21, 2024
Today's Communication
Discontinue meropenem.
Assessment / Plan
Left parotitis
Leukocytosis
Fevers
Thrombocytopenia
Recent Hx C. difficile
Rash, suspect secondary to Zosyn
Benign Essential Tremor
GERD / Silva's Esophagus
Depression
Lumbar DDD
Chronic Back Pain
Hypothyroidism
Recommendations:
Patient overall appears improved.
Rash fading.
Parotid pain nearly resolved.
Discontinue further meropenem.
Continue enteral vancomycin for C. difficile prophylaxis another 5 to 7 days.
����������������������������������������������������������
Chief Complaint
-: Other (Left parotitis; rash)
Subjective / Review of Systems
Patient seen and examined. Overall she reports feeling improved.
Vital Signs / Physical Exam
Vital Signs
Vital Signs
Temp Pulse Resp BP Pulse Ox
97.5 F 74 18 158/88 96
09/21/24 07:00 09/21/24 07:00 09/21/24 07:00 09/21/24 07:00 09/21/24 07:00
Physical Exam
Constitutional: No Acute Distress and Comfortable
Eyes: Sclera Anicteric
Oropharyngeal: Other (Less left parotid minimal discomfort to palpation. Almost resolved swelling)
Cardiovascular: S1/S2; Negative S3/S4
Pulmonary: Coarse
Skin: Rash (Stable distribution and confluence, overall faded.)
Neurological: Awake and Alert
Psychological: Calm
Objective Data
Lab Data
Lab Results
09/21/24 05:34
09/21/24 05:34
PT 13.4 Sec (11.4-14.6) 09/13/24 22:12
INR 0.99 09/13/24 22:12
APTT 26.6 Sec (23.4-35.0) 09/13/24 22:12
Estimated Creat Clear 92 ml/min 09/21/24 05:34
Lactic Acid 1.0 mmol/L (0.7-2.0) 09/17/24 23:12
Total Bilirubin 1.2 mg/dl (0.2-1.3) 09/13/24 20:58
AST 22 U/L (14-36) 09/13/24 20:58
ALT 28 U/L (0-35) 09/13/24 20:58
Alkaline Phosphatase 68 U/L (38-126) 09/13/24 20:58
Most recent labs reviewed.
Micro Results:
09/13/24 22:12 Blood Culture - Final
Blood/Venous No Growth - Final Report
09/13/24 22:12 Blood Culture - Final
Blood/Venous No Growth - Final Report
09/14/24 02:56 MRSA Screen - Final
Nose No Methicillin Resistant Staphylococcus aureus isolated.
Imaging:
09/13/2024 CT neck with IV contrast: Left parotitis with asymmetric enlargement and inflammation of the left parotid gland. Probable left intraparotid lymph node, but recommend following up imaging after treatment for reevaluation. There is
bilateral cervical lymphadenopathy. Please see full dictation for additional detail.
[2024-09-21 15:00] VITALS: BP 133/77
[2024-09-21] MEDS: VISBIOME 1 CAP PO (15:21)
[2024-09-21] MEDS: LOVENOX 40 MG SC (19:59)
[2024-09-21] MEDS: QUESTRAN 4 GRAM PO (22:12)
[2024-09-21 23:00] VITALS: BP 134/83
[2024-09-22] MEDS: SYNTHROID 75 MCG PO (05:57)
[2024-09-22 06:00] VITALS: BMI 28.7
[2024-09-22] MEDS: COMPAZINE 5 MG IV (06:01)
[2024-09-22 06:29] LABS: Hematocrit 34.0 % (37.0-47.0); Hemoglobin 11.8 g/dL (12.0-16.0); Mean Corp Hgb Conc. 34.7 g/dL (33.0-37.0); Mean Corpuscular Volume 86.1 fL (81.0-99.0); Platelet Count 284 10^3/uL (130-400); Red Cell Dist. Width 14.8 % (11.5-14.5)
[2024-09-22 06:41] LABS: Blood Urea Nitrogen 11 mg/dl (7-17); Calcium 8.1 mg/dl (8.4-10.2); Carbon Dioxide 24 mmol/L (22-30); Chloride 108 mmol/L (98-107); Estimated Creatinine Clearance 92 ml/min; Glucose 123 mg/dl (70-99); Potassium 3.9 mmol/L (3.5-5.1); Sodium 138 mmol/L (135-145); eGFR > 60.00
[2024-09-22 07:00] VITALS: BP 154/80
[2024-09-22 07:09] LABS: Nucleated Red Blood Cells % 0 %
--- NOTE | 2024-09-22 07:31 | W.PN.HOSP.TC ---
Today's Communication/Plan
-
Discharge planning
Assessment / Plan
Assessment / Plan
General: No acute distress
HEENT: Other (Pos induration / edema L preauricular region decreasing significantly. No intra-oral lesions or drainage appreciated)
Respiratory: Clear; No Wheezes, Rales or Rhonchi
Cardiac: S1/S2, Regular Rhythm and Murmur (II/ LYLY)
GI: Soft, Non Tender, Non Distended and Normal Bowel Sounds
Musculoskeletal: No Edema
Neuro: AO x 3
Parotitis
Sepsis secondary to the above
- Improved
- Finish course of antibiotics
-WBC 17.7--> 10.5
- Case management for discharge disposition
Recent CDiff Colitis
- Continue oral vancomycin prophylactically for 5 more days
GERD / Silva's Esophagus
- On PPI
Hyponatremia
Resolved
Hypokalemia
Repleted
Chronic Back Pain
Lumbar DDD
s/p Spinal Stimulator
- Stable. Continue pain management.
Hypothyroidism
- Stable. Continue current T4 replacement.
Depression
- Stable. Continue current psychotropic med regimen.
DVT Prophylaxis: Lovenox
Code Status: Full
Anticipated Discharge: Today
Subjective/Interval History
-
Date of Service: September 22, 2024
Patient feels better overall. Complains of mild indigestion. Pain in parotid improving. Rash fading. Afebrile
Objective Data
-
Labs:
Laboratory Results
09/22/24
05:30
WBC 10.5
Hgb 11.8 L
Hct 34.0 L
Plt Count 284 D
Sodium 138
Potassium 3.9
Chloride 108 H
Carbon Dioxide 24
BUN 11
Creatinine 0.6
Glucose 123 H
Calcium 8.1 L
Vital Signs:
Vital Signs
Temp Pulse Resp BP Pulse Ox
97.5 F 68 16 134/83 97
09/21/24 23:00 09/21/24 23:00 09/21/24 23:00 09/21/24 23:00 09/21/24 23:00
I&O
09/21/24 09/22/24 09/23/24
06:59 06:59 06:59
Intake Total 1080 / 1080 800 / 800 1440 / 1440
Balance 1080 / 1080 800 / 800 1440 / 1440
[2024-09-22] MEDS: ABILIFY 2 MG PO (09:20)
[2024-09-22] MEDS: FIRVANQ 125 MG PO ×2 (09:20→22:25)
[2024-09-22] MEDS: PROTONIX 40 MG PO (09:20)
[2024-09-22] MEDS: CRESTOR 5 MG PO (09:20)
--- NOTE | 2024-09-22 10:35 | W.PN.ID1 ---
Date of Service
Date of Service: September 22, 2024
Today's Communication
Sign off
Assessment / Plan
Left parotitis
Leukocytosis
Fevers
Thrombocytopenia
Recent Hx C. difficile
Rash, suspect secondary to Zosyn
Benign Essential Tremor
GERD / Silva's Esophagus
Depression
Lumbar DDD
Chronic Back Pain
Hypothyroidism
Recommendations:
Patient overall appears improved.
Rash fading.
Parotid pain nearly resolved.
Observe off systemic antibiotics.
Continue enteral vancomycin for C. difficile prophylaxis another 5 to 7 days.
Nothing further to add from a Infectious Diseases standpoint.
Will see again at your request.
����������������������������������������������������������
Chief Complaint
-: Other (Left parotitis; rash)
Subjective / Review of Systems
Review of Systems: No Fever and No Chills
Vital Signs / Physical Exam
Vital Signs
Vital Signs
Temp Pulse Resp BP Pulse Ox
98.2 F 64 17 154/80 95
09/22/24 07:00 09/22/24 07:00 09/22/24 07:00 09/22/24 07:00 09/22/24 07:00
Physical Exam
Constitutional: No Acute Distress, Comfortable and Non-toxic
Eyes: Sclera Anicteric
Oropharyngeal: Other (Less left parotid minimal discomfort to palpation. Almost resolved swelling)
Pulmonary: Non Labored
Skin: Rash (Stable distribution and confluence, overall faded.)
Neurological: Awake and Alert
Psychological: Calm
Objective Data
Lab Data
Lab Results
09/22/24 05:30
09/22/24 05:30
PT 13.4 Sec (11.4-14.6) 09/13/24 22:12
INR 0.99 09/13/24 22:12
APTT 26.6 Sec (23.4-35.0) 09/13/24 22:12
Estimated Creat Clear 92 ml/min 09/22/24 05:30
Lactic Acid 1.0 mmol/L (0.7-2.0) 09/17/24 23:12
Total Bilirubin 1.2 mg/dl (0.2-1.3) 09/13/24 20:58
AST 22 U/L (14-36) 09/13/24 20:58
ALT 28 U/L (0-35) 09/13/24 20:58
Alkaline Phosphatase 68 U/L (38-126) 09/13/24 20:58
Most recent labs reviewed.
Micro Results:
09/22/24 08:32 MRSA Screen - Pending
Nose
09/13/24 22:12 Blood Culture - Final
Blood/Venous No Growth - Final Report
09/13/24 22:12 Blood Culture - Final
Blood/Venous No Growth - Final Report
09/14/24 02:56 MRSA Screen - Final
Nose No Methicillin Resistant Staphylococcus aureus isolated.
Imaging:
09/13/2024 CT neck with IV contrast: Left parotitis with asymmetric enlargement and inflammation of the left parotid gland. Probable left intraparotid lymph node, but recommend following up imaging after treatment for reevaluation. There is
bilateral cervical lymphadenopathy. Please see full dictation for additional detail.
[2024-09-22] MEDS: TUMS CHEWABLE TABLET 200 MG PO (10:43)
[2024-09-22 15:00] VITALS: BP 139/82
--- NOTE | 2024-09-22 16:09 | CM ---
Pt is cleared for discharge when SNF bed found. Pt prefers [facility], however no beds available. Additional referrals sent to [facility], [facility], [facility], [facility], [facility], [facility]. Dr. Shultz updated regarding bed
search.
Plan: F/U with SNF referrals for transfer tomorrow. Will need IBC auth when facility is identified.
[2024-09-22] MEDS: LOVENOX 40 MG SC (17:35)
[2024-09-22] MEDS: VISBIOME 1 CAP PO (17:36)
[2024-09-22 20:56] VITALS: BP 129/82
[2024-09-22] MEDS: TYLENOL 650 MG PO (22:24)
[2024-09-22 23:00] VITALS: BP 162/86
[2024-09-22] MEDS: QUESTRAN 4 GRAM PO (23:32)
[2024-09-23] MEDS: BENADRYL 25 MG PO (00:37)
[2024-09-23] MEDS: SYNTHROID 75 MCG PO (05:22)
[2024-09-23 06:00] VITALS: BMI 29.0
[2024-09-23 07:52] VITALS: BP 167/94
--- NOTE | 2024-09-23 07:59 | W.PN.HOSP.TC ---
Today's Communication/Plan
-
Discharge planning
Assessment / Plan
Assessment / Plan
General: No acute distress
HEENT: Other (Pos induration / edema L preauricular region decreasing significantly. No intra-oral lesions or drainage appreciated)
Respiratory: Clear; No Wheezes, Rales or Rhonchi
Cardiac: S1/S2, Regular Rhythm and Murmur (II/ LYLY)
GI: Soft, Non Tender, Non Distended and Normal Bowel Sounds
Musculoskeletal: No Edema
Neuro: AO x 3
Parotitis
Sepsis secondary to the above
- Improved
- Finish course of antibiotics
-WBC 17.7--> 10.5
- Case management for discharge disposition
Recent CDiff Colitis
- Continue oral vancomycin prophylactically for 5 more days
GERD / Silva's Esophagus
- On PPI
Hyponatremia
Resolved
Hypokalemia
Repleted
Chronic Back Pain
Lumbar DDD
s/p Spinal Stimulator
- Stable. Continue pain management.
Hypothyroidism
- Stable. Continue current T4 replacement.
Depression
- Stable. Continue current psychotropic med regimen.
DVT Prophylaxis: Lovenox
Code Status: Full
Anticipated Discharge: Today
Subjective/Interval History
-
Date of Service: September 23, 2024
No new complaints. Afebrile
Objective Data
-
Vital Signs:
Vital Signs
Temp Pulse Resp BP Pulse Ox
97.8 F 76 17 167/94 95
09/23/24 07:52 09/23/24 07:52 09/23/24 07:52 09/23/24 07:52 09/23/24 07:52
I&O
09/22/24 09/23/24 09/24/24
06:59 06:59 06:59
Intake Total 800 / 800 2440 / 2440
Balance / 2440 / 2440
[2024-09-23] MEDS: CRESTOR 5 MG PO (08:00)
[2024-09-23] MEDS: ABILIFY 2 MG PO (08:00)
[2024-09-23] MEDS: PROTONIX 40 MG PO (08:00)
[2024-09-23] MEDS: FIRVANQ 125 MG PO ×2 (08:01→20:45)
[2024-09-23 09:57] VITALS: BP 171/88; PULSE 83
--- NOTE | 2024-09-23 12:10 | CM ---
Addendum entered by Brielle Cruz 09/23/24 17:57:
Left a voice mail for Dionne @ [facility] regarding denial of SNF authorization
Addendum entered by Brielle Cruz 09/23/24 17:50:
The SNF authorization was denied. Cloth Finishing Range Tender will follow up with patient tomorrow to discuss alternative discharge plan
Addendum entered by Brielle Cruz 09/23/24 17:05:
Authorization request for ambulance was not accepted; patient will need to transport via WC Van or find someone to transport her to facility if the SNF Authorization is approved
Pending SNF Authorization # [id number]
Cloth Finishing Range Tender will follow up tomorrow
Addendum entered by Brielle Cruz 09/23/24 16:39:
ambulance pick up worker scheduled for 2100; facility notified
Addendum entered by Brielle Cruz 09/23/24 16:36:
[facility]
Report # [phone]

Original Note:
Met with patient; reviewed SNF site options; [facility] is preference
Plan: Discharge to [facility] today pending authorization approval
[2024-09-23] MEDS: VISBIOME 1 CAP PO (14:48)
[2024-09-23 14:51] VITALS: BP 148/95; PULSE 88
[2024-09-23 15:08] VITALS: BP 149/96
[2024-09-23] MEDS: TYLENOL 650 MG PO (15:42)
[2024-09-23] MEDS: LOVENOX 40 MG SC (17:04)
[2024-09-23 23:00] VITALS: BP 158/85
[2024-09-23] MEDS: QUESTRAN PO (23:27)
[2024-09-24] MEDS: BENADRYL 25 MG PO (01:23)
[2024-09-24 05:14] VITALS: BMI 28.1
[2024-09-24] MEDS: SYNTHROID 75 MCG PO (05:57)
[2024-09-24 07:25] VITALS: BP 131/75
[2024-09-24] MEDS: CRESTOR 5 MG PO (07:54)
[2024-09-24] MEDS: ABILIFY 2 MG PO (07:54)
[2024-09-24] MEDS: PROTONIX 40 MG PO (07:54)
[2024-09-24] MEDS: FIRVANQ 125 MG PO (07:56)
--- NOTE | 2024-09-24 08:01 | W.PN.HOSP.TC ---
Today's Communication/Plan
-
Discharge planning
Assessment / Plan
Assessment / Plan
General: No acute distress
HEENT: Other (Pos induration / edema L preauricular region decreasing significantly. No intra-oral lesions or drainage appreciated)
Respiratory: Clear; No Wheezes, Rales or Rhonchi
Cardiac: S1/S2, Regular Rhythm and Murmur (II/ LYLY)
GI: Soft, Non Tender, Non Distended and Normal Bowel Sounds
Musculoskeletal: No Edema
Neuro: AO x 3
Parotitis
Sepsis secondary to the above
- Improved
- Finish course of antibiotics
-WBC 17.7--> 10.5
- nurse outreach case manager attempted skilled rehab yesterday but unsuccessful since insurance did not authorize so we will need to try home with home health. nurse outreach case manager for discharge disposition.
Recent CDiff Colitis
- Continue oral vancomycin prophylactically for 5 more days
GERD / Silva's Esophagus
- On PPI
Hyponatremia
Resolved
Hypokalemia
Repleted
Chronic Back Pain
Lumbar DDD
s/p Spinal Stimulator
- Stable. Continue pain management.
Hypothyroidism
- Stable. Continue current T4 replacement.
Depression
- Stable. Continue current psychotropic med regimen.
DVT Prophylaxis: Lovenox
Code Status: Full
Anticipated Discharge: Today
Subjective/Interval History
-
Date of Service: September 24, 2024
Patient with no new complaints. Afebrile
Objective Data
-
Vital Signs:
Vital Signs
Temp Pulse Resp BP Pulse Ox
98.3 F 70 16 131/75 95
09/24/24 07:25 09/24/24 07:25 09/24/24 07:25 09/24/24 07:25 09/24/24 07:25
I&O
09/23/24 09/24/24 09/25/24
06:59 06:59 06:59
Intake Total 2440 / 2440 1800 / 1800
Balance 2440 / 2440 1800 / 1800
--- NOTE | 2024-09-24 12:32 | CM ---
CM met with patient to discuss SNF denial. Pt is not agreeable to discharge and is calling [facility] to appeal her discharge.
Plan: Await update from [facility]
--- NOTE | 2024-09-24 13:43 | W.DCSUMMARY ---
Discharge Summary
Discharge Data
Date of Admission: 09/14/24
Date of Discharge: 09/24/24
-
Pending Results: No
Hospital Course
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
discomfort and swelling and found to have acute parotitis. Prior to her presentation she had multiple courses of antibiotics. ID was consulted. She was treated with IV Zosyn and completed a course of antibiotics while inpatient. She did develop
a rash and it was felt to be probably related to Zosyn but she had completed her course of antibiotics already. Her white blood cell count peaked at 18.5 and it went down to normal 10.5 prior to discharge. She was also placed on prophylactically
vancomycin to prevent C. difficile by ID guidance since she had a relatively recent episode of C. difficile colitis. Patient did well in the rest of the hospital course. She participated with PT and they recommended SNF versus home PT and patient
agreeable for SNF. Insurance authorization did not approve SNF. Patient stable for discharge on 09/24/2024 but she appealed her discharge since she declined to go home. We are waiting for appeal process.
Discharge duration: 35 minutes
Discharge Plan
-
Patient Disposition: Home with Home Care
Discharge Diagnosis/Procedures: Acute left parotitis. Recent C. difficile.
Diet: Low Cholesterol
Activity: As tolerated
Blood Work: Please PCP to order CBC, BMP within 1 week
Referrals:
Crescencio Epstein MD [Family Provider, Family Practice] - in less than 1 week
Prescriptions:
New
vancomycin 50 mg/mL Recon Soln
125 mg PO Q12H 5 Days Qty: 25 0RF
Continued
levothyroxine [Levoxyl] 75 MCG tablet
75 mcg PO DAILY
rosuvastatin 5 mg Tablet
5 mg PO DAILY
aripiprazole 2 mg Tablet
2 mg PO DAILY
vilazodone 10 mg Tablet
10 mg PO DAILY
acetaminophen [Tylenol Extra Strength] 500 mg Tablet
1,000 mg PO DAILY
omeprazole 20 mg Capsule,Delayed Release(Dr/Ec)
20 mg PO BID
ciclopirox 1 % Shampoo
1 ea TOPICAL .3 TIMES A WEEK
Patient Comments:
09/13/2024, apply to scalp.
cholestyramine (with sugar) 4 gram Powder In Packet
4 g PO HS
Visbiome 112.5 billion cell Capsule
1 cap PO DAILY@1500
Discontinued
amoxicillin-pot clavulanate 875-125 mg Tablet
1 tab PO BID
Patient Comments:
09/13/2024, filled on 09/13/2024 and instructed to take 1 tab BID for 7 days.
Discharge Orders:
Discharge Patient (As Directed); Ordered 09/24/24
Ordered By: Marko Shultz
Discharge Date and Time
Print Language: MACANESE
[2024-09-24] MEDS: VISBIOME 1 CAP PO (14:44)
[2024-09-24 15:07] VITALS: BP 136/85
[2024-09-24] MEDS: LOVENOX 40 MG SC (18:11)
[2024-09-24] MEDS: QUESTRAN 4 GRAM PO (22:42)
[2024-09-24 23:00] VITALS: BP 156/88
[2024-09-25 06:00] VITALS: BMI 27.8
[2024-09-25] MEDS: SYNTHROID 75 MCG PO (06:18)
[2024-09-25 07:00] VITALS: BP 138/79
[2024-09-25] MEDS: CRESTOR 5 MG PO (07:43)
[2024-09-25] MEDS: ABILIFY 2 MG PO (07:43)
[2024-09-25] MEDS: PROTONIX 40 MG PO (07:43)
--- NOTE | 2024-09-25 08:58 | CM ---
ROSIO met with Kristin and her brother, Alo, yesterday afternoon to discuss discharge. Alo lives in [place], so is not able to assist with caring for Kristin. Offered visiting nurses, however Kristin declined this option, and is adamantly against going
to SNF.
Pt initiated discharge appeal with [facility]. ROSIO coordinating paperwork and will fax to [facility] this morning for review.
[2024-09-25 10:15] VITALS: BP 157/89; PULSE 82
--- NOTE | 2024-09-25 11:14 | CM ---
Pt has appealed her discharge with [employer]; Records faxed for review this AM.
CM will continue following while awaiting determination from [employer] for appeal.
--- NOTE | 2024-09-25 11:57 | W.PN.HOSP.TC ---
Addendum entered and electronically signed by Marko Shultz MD 09/25/24 18:31:
c/o vaginal discomfort and RN examined her. Empirically vaginal cream and will have her see her MAILING MACHINE HELPER.
Original Note:
Today's Communication/Plan
-
Discharge planning
Assessment / Plan
Assessment / Plan
General: No acute distress
HEENT: Other (Pos induration / edema L preauricular region decreasing significantly. No intra-oral lesions or drainage appreciated)
Respiratory: Clear; No Wheezes, Rales or Rhonchi
Cardiac: S1/S2, Regular Rhythm and Murmur (II/ LYLY)
GI: Soft, Non Tender, Non Distended and Normal Bowel Sounds
Musculoskeletal: No Edema
Neuro: AO x 3
Parotitis
Sepsis secondary to the above
- Improved
- Finish course of antibiotics
-WBC 17.7--> 10.5
- internal communications manager attempted skilled rehab yesterday but unsuccessful since insurance did not authorize so was advised to go home with home health.
-Patient stable for discharge but she appealed discharge. Waiting for determination
Recent CDiff Colitis
- Continue oral vancomycin prophylactically for 5 more days
GERD / Silva's Esophagus
- On PPI
Hyponatremia
Resolved
Hypokalemia
Repleted
Chronic Back Pain
Lumbar DDD
s/p Spinal Stimulator
- Stable. Continue pain management.
Hypothyroidism
- Stable. Continue current T4 replacement.
Depression
- Stable. Continue current psychotropic med regimen.
DVT Prophylaxis: Lovenox
Code Status: Full
Anticipated Discharge: Within 24 hours
Subjective/Interval History
-
Date of Service: September 25, 2024
No new complaints
Objective Data
-
Vital Signs:
Vital Signs
Temp Pulse Resp BP Pulse Ox
97.9 F 64 16 138/79 95
09/25/24 07:00 09/25/24 07:00 09/25/24 07:00 09/25/24 07:00 09/25/24 07:00
I&O
09/24/24 09/25/24 09/26/24
06:59 06:59 06:59
Intake Total 1800 / 1800 600 / 600
Balance 1800 / 1800 600 / 600
[2024-09-25] MEDS: LOTRIMIN 1% CREAM 1 APPLIC TOPICAL ×2 (14:18→20:35)
[2024-09-25] MEDS: VISBIOME 1 CAP PO (14:20)
[2024-09-25 15:00] VITALS: BP 140/84
[2024-09-25] MEDS: LOVENOX 40 MG SC (17:37)
[2024-09-25] MEDS: QUESTRAN 4 GRAM PO (22:24)
[2024-09-25 23:00] VITALS: BP 160/84
[2024-09-25] MEDS: BENADRYL 25 MG PO (23:23)
[2024-09-26 03:56] VITALS: BMI 27.8
[2024-09-26] MEDS: SYNTHROID 75 MCG PO (05:34)
[2024-09-26 07:20] VITALS: BP 159/78
[2024-09-26] MEDS: CRESTOR 5 MG PO (08:18)
[2024-09-26] MEDS: PROTONIX 40 MG PO (08:18)
[2024-09-26] MEDS: ABILIFY 2 MG PO (08:18)
[2024-09-26] MEDS: LOTRIMIN 1% CREAM 1 APPLIC TOPICAL ×2 (08:18→20:34)
--- NOTE | 2024-09-26 08:18 | W.PN.HOSP.TC ---
Addendum entered and electronically signed by Marko Shultz MD 09/26/24 17:08:
Completed course of oral vancomycin.
Original Note:
Today's Communication/Plan
-
Discharge planning
Assessment / Plan
Assessment / Plan
General: No acute distress
Heart: RRR, S1 S2
A/P:
Parotitis
Sepsis secondary to the above
- Improved
- Finish course of antibiotics
-WBC 17.7--> 10.5
- land acquisition manager attempted skilled rehab yesterday but unsuccessful since insurance did not authorize so was advised to go home with home health.
-Patient stable for discharge but she appealed discharge. Waiting for determination
Recent CDiff Colitis
- Continue oral vancomycin prophylactically for 5 more days
GERD / Silva's Esophagus
- On PPI
Hyponatremia
Resolved
Hypokalemia
Repleted
Chronic Back Pain
Lumbar DDD
s/p Spinal Stimulator
- Stable. Continue pain management.
Hypothyroidism
- Stable. Continue current T4 replacement.
Depression
- Stable. Continue current psychotropic med regimen.
DVT Prophylaxis: Lovenox
Code Status: Full
Anticipated Discharge: Today
Subjective/Interval History
-
Date of Service: September 26, 2024
No new complaints.
Objective Data
-
Vital Signs:
Vital Signs
Temp Pulse Resp BP Pulse Ox
97.9 F 69 16 159/78 95
09/26/24 07:20 09/26/24 07:20 09/26/24 07:20 09/26/24 07:20 09/26/24 07:20
I&O
09/25/24 09/26/24 09/27/24
06:59 06:59 06:59
Intake Total 600 / 600 1220 / 1220
Balance 600 / 600 1220 / 1220
[2024-09-26 10:12] VITALS: BP 130/83; PULSE 81; O2SAT 96
--- NOTE | 2024-09-26 11:48 | CM ---
[employer] appeal determination received; Case# [id number].
[facility] physician reviewer agrees with the termination of services; pt has started a reconsideration with [facility] which could take 1-3 days.
Pt's liability begins at noon tomorrow (09/27/2024) which means she is responsible for for hospital costs if she remains in the hospital after 12 noon 09/27/2024.
CM will continue to follow.
--- NOTE | 2024-09-26 15:33 | CM ---
Notice of financial responsibility presented and explained to patient by Director of Patient Access along with Case Manger, and Case management Scroll Machine Operator. Patient's liability begins at noon tomorrow (09/27/2024) [employer] reconsideration pending.
Patient verbalized understanding, signed form. Patient currently looking into alternate resources such as respite and HC.
[2024-09-26 15:40] VITALS: BP 136/96
--- NOTE | 2024-09-26 15:52 | CM ---
[facility] form signed, financial responsibility explained to patient by Director of Patient Access along with Case Manger, and Case management Rough Patcher. Patient's liability begins at noon tomorrow (09/27/2024) [employer] reconsideration pending. Patient
verbalized understanding, signed form. Patient currently looking into alternate resources such as respite and HC
--- NOTE | 2024-09-26 16:55 | CM ---
ROSIO met with Kristin and a friend who is going to help her for the next 2 weeks.
Kristin was given the update regarding [employer] appeal and is aware that her liability begins at noon tomorrow (09/27/2024) which means she is responsible for for hospital costs if she remains in the hospital after 12 noon 09/27/2024.
Plan: Pt to return home with referral to [facility] and was provided with a caregiver list, as she is likely going to hire some private assistance.
[2024-09-26] MEDS: LOVENOX 40 MG SC (17:29)
[2024-09-26] MEDS: VISBIOME 1 CAP PO (17:31)
[2024-09-26] MEDS: QUESTRAN 4 GRAM PO (22:36)
[2024-09-26 23:08] VITALS: BP 133/80
[2024-09-27] MEDS: SYNTHROID 75 MCG PO (05:39)
[2024-09-27 06:00] VITALS: BMI 27.8
[2024-09-27 07:00] VITALS: BP 139/76
[2024-09-27] MEDS: ABILIFY 2 MG PO (08:16)
[2024-09-27] MEDS: CRESTOR 5 MG PO (08:16)
[2024-09-27] MEDS: LOTRIMIN 1% CREAM 1 APPLIC TOPICAL (08:16)
[2024-09-27] MEDS: PROTONIX 40 MG PO (08:16)
--- NOTE | 2024-09-27 08:29 | W.PN.HOSP.TC ---
Today's Communication/Plan
-
Discharge planning
Assessment / Plan
Assessment / Plan
General: No acute distress
Heart: RRR, S1 S2
A/P:
Parotitis
Sepsis secondary to the above
- Improved
- Finish course of antibiotics
-WBC 17.7--> 10.5
- assisted living manager attempted skilled rehab yesterday but unsuccessful since insurance did not authorize so was advised to go home with home health.
-Patient stable for discharge but she appealed discharge. Waiting for determination
Recent CDiff Colitis
- Completed course of oral vancomycin prophylactically
GERD / Silva's Esophagus
- On PPI
Hyponatremia
Resolved
Hypokalemia
Repleted
Chronic Back Pain
Lumbar DDD
s/p Spinal Stimulator
- Stable. Continue pain management.
Hypothyroidism
- Stable. Continue current T4 replacement.
Depression
- Stable. Continue current psychotropic med regimen.
DVT Prophylaxis: Lovenox
Code Status: Full
Anticipated Discharge: Today
Subjective/Interval History
-
Date of Service: September 27, 2024
No new complaints
Objective Data
-
Vital Signs:
Vital Signs
Temp Pulse Resp BP Pulse Ox
97.9 F 69 17 139/76 95
09/27/24 07:00 09/27/24 07:00 09/27/24 07:00 09/27/24 07:00 09/27/24 07:00
I&O
09/26/24 09/27/24 09/28/24
06:59 06:59 06:59
Intake Total 1220 / 1220 1400 / 1400
Balance 1220 / 1220 1400 / 1400
--- NOTE | 2024-09-27 08:29 | W.DCSUMMARY ---
Discharge Summary
Discharge Data
Date of Admission: 09/14/24
Date of Discharge: 09/27/24
-
Pending Results: No
Hospital Course
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
discomfort and swelling and found to have acute parotitis. Prior to her presentation she had multiple courses of antibiotics. ID was consulted. She was treated with IV Zosyn and completed a course of antibiotics while inpatient. She did develop
a rash and it was felt to be probably related to Zosyn but she had completed her course of antibiotics already. Her white blood cell count peaked at 18.5 and it went down to normal 10.5 prior to discharge. She was also completed a course of
prophylactic vancomycin to prevent C. difficile by ID guidance since she had a relatively recent episode of C. difficile colitis. Patient did well in the rest of the hospital course. She participated with PT and they recommended SNF versus home PT
and patient agreeable for SNF. Insurance authorization did not approve SNF. Patient stable for discharge on 09/24/2024 but she appealed her discharge since she declined to go home. Appeal process states she can be discharged and she is being
discharge today.
Discharge Plan
-
Patient Disposition: Home with Home Care
Discharge Diagnosis/Procedures: Acute left parotitis. Recent C. difficile.
Diet: Low Cholesterol
Activity: As tolerated
Blood Work: Please PCP to order CBC, BMP within 1 week
Referrals:
Crescencio Epstein MD [Family Provider, Family Practice] - in less than 1 week
Prescriptions:
Continued
levothyroxine [Levoxyl] 75 MCG tablet
75 mcg PO DAILY
rosuvastatin 5 mg Tablet
5 mg PO DAILY
aripiprazole 2 mg Tablet
2 mg PO DAILY
vilazodone 10 mg Tablet
10 mg PO DAILY
acetaminophen [Tylenol Extra Strength] 500 mg Tablet
1,000 mg PO DAILY
omeprazole 20 mg Capsule,Delayed Release(Dr/Ec)
20 mg PO BID
ciclopirox 1 % Shampoo
1 ea TOPICAL .3 TIMES A WEEK
Patient Comments:
09/13/2024, apply to scalp.
cholestyramine (with sugar) 4 gram Powder In Packet
4 g PO HS
Visbiome 112.5 billion cell Capsule
1 cap PO DAILY@1500
Discontinued
amoxicillin-pot clavulanate 875-125 mg Tablet
1 tab PO BID
Patient Comments:
09/13/2024, filled on 09/13/2024 and instructed to take 1 tab BID for 7 days.
Discharge Orders:
Discharge Patient (As Directed); Ordered 09/24/24
Ordered By: Marko Shultz
Discharge Date and Time
Discharge Date/Time: 09/27/24 11:13
Print Language: NEPALI
== END 2024-09-27 11:13 | disposition home health service (06) | DRG 872 ==
LOC: 3 WEST ACU 00:35
PROVIDERS: Internal Medicine; Nurse Practitioner Family; Student in an Organized Health Care Education/Training Program; ADMITTING PHYSICIAN Hospitalist; ATTENDING PHYSICIAN Hospitalist; CONSULT PHYSICIAN Internal Medicine Infectious Disease; EMERGENCY PHYSICIAN Student in an Organized Health Care Education/Training Program; FAMILY PHYSICIAN Family Medicine
DX: A41.9 Sepsis, unspecified organism (principal); E87.1 Hypo-osmolality and hyponatremia; K11.21 Acute sialoadenitis; E03.9 Hypothyroidism, unspecified; F32.A Depression, unspecified; G89.29 Other chronic pain; K22.70 Barrett's esophagus without dysplasia; G25.0 Essential tremor; K21.9 Gastro-esophageal reflux disease without esophagitis; M51.369 Other intervertebral disc degeneration, lumbar region without mention of lumbar back pain or lower extremity pain; E87.6 Hypokalemia; Z85.818 Personal history of malignant neoplasm of other sites of lip, oral cavity, and pharynx; Z79.890 Hormone replacement therapy; Z88.2 Allergy status to sulfonamides; F41.9 Anxiety disorder, unspecified
CPT/HCPCS: 70491; 80048; 80053; 81003; 82962; 83605; 83735; 84484; 85025; 85027; 85610; 85730; 87040; 87070; 93005; 96361; 96365; 96375; 96376; 97116; 97163; 97166; 97530; 97535; 99285; Q9967

== ENCOUNTER → 2024-10-14 10:38 | Outpatient (REF) | payer OTHER, SELFPAY | LOC: RAD 10:38 | PROVIDERS: ATTENDING PHYSICIAN Family Medicine; FAMILY PHYSICIAN Family Medicine | DX: Z09 Encounter for follow-up examination after completed treatment for conditions other than malignant neoplasm (principal); K11.20 Sialoadenitis, unspecified; E83.51 Hypocalcemia; D64.9 Anemia, unspecified | CPT/HCPCS: 70491; Q9967 ==

== ENCOUNTER → 2025-01-06 11:06 | Outpatient (REF) | payer OTHER, SELFPAY | LOC: RAD 11:06 | PROVIDERS: ATTENDING PHYSICIAN Family Medicine | DX: R91.1 Solitary pulmonary nodule (principal) | CPT/HCPCS: 71260; Q9967 ==